=== PATIENT | female | born 1990 | race Caucasian/White ===

== ENCOUNTER → 2019-06-10 10:29 | Outpatient (CLI) | payer OTHER, SELFPAY ==
[2019-06-01 10:35] VITALS: BMI 42.0
[2019-06-10 11:13] LABS: Absolute Lymphocyte Count 2.16 X10^3/uL (0.83-4.51); Absolute Neutrophil Count 6.6 X10^3/uL (2.0-7.7); Basophil# 0.04 X10^3/uL; Basophil% 0.4 % (0-1); Hematocrit 43.3 % (37-47); Hemoglobin 14.5 g/dL (12.0-15.0); Lymphocyte # 2.16 X10^3/ul (4.0); Lymphocyte % 21.7 % (19-41); Mean Corp Hgb Conc 33.5 g/dL (32-36); Mean Corpuscular Hgb 27.8 pg (27.0-32.0); Mean Corpuscular Volume 83.1 fL (81-99); Monocyte# 0.94 X10^3/uL; Monocyte% 9.4 % (0-10); NRBC Flagged by Analyzer 0 % (0-5); Neutrophil # 6.64 X10^3/uL (2.7-7.7); Neutrophil % 66.7 % (47-70); Platelet Count 338 K/mm3 (150-450); RBC Distribution Width CV 12.6 % (11.6-14.6); RBC Distribution Width SD 38.4 fl (35.1-43.9); Red Blood Count 5.21 M/mm3 (4.2-5.4)
[2019-06-10 11:49] LABS: Cholesterol 143 mg/dL (200); Estradiol 31.2 pg/mL; Follicle Stimulating Hormone 6.5 mIU/mL; Glucose 98 mg/dL (74-106); High Density Lipoprotein 42 mg/dL; Prolactin 17.9 ng/mL; T4 Free Direct 1.11 ng/dL (0.76-1.46); Thyroid Stim Hormone (TSH) 1.96 uIU/mL (0.358-3.74); Triglycerides 108 mg/dL; Very Low Density Lipoprotein 22 mg/dL (5-40)
[2019-06-11 20:07] LABS: DHEA Sulfate 228.5 ug/dL (84.8-378.0)
[2019-06-14 13:01] LABS: 17-Hydroxyprogesterone 24 ng/dL (.)
[2019-06-14 13:07] LABS: Testosterone Free 3.2 pg/mL (0.0-4.2)
== END ==
PROVIDERS: Referring Provider Obstetrics & Gynecology; Visit Provider Obstetrics & Gynecology
DX: N93.9 Abnormal uterine and vaginal bleeding, unspecified (principal); Z13.1 Encounter for screening for diabetes mellitus; Z13.220 Encounter for screening for lipoid disorders
CPT/HCPCS: 36415; 80061; 82627; 82670; 82947; 83001; 83498; 84146; 84402; 84439; 84443; 85025; 82626

== ENCOUNTER 2019-07-06 07:30 | Day surgery (SDC) | payer OTHER, SELFPAY ==
[2019-05-27 10:46] VITALS: BMI 42.0
[2019-06-24 16:24] VITALS: BMI 42.0
--- NOTE | 2019-07-06 05:24 | HP.PCM_ITS ---
- Problem List (1) Abnormal uterine bleeding Status: Acute Comment: heavy menses, ordered labs and workup. (2) Dysmenorrhea Status: Acute Comment: recommend diagnostic laparoscopy chromotubation (3) Infertility Status: Acute Comment: 5 years of infertility History and Physical Date of Admission: 07/06/19 Intake Vital Signs 06/24/19 BMI 42.0 06/24/19 Height 5 ft 6 in 06/24/19 Weight: 265 lb 06/24/19 BMI 42.7 06/24/19 BP 142/88 H Intake Visit Reasons: pre op diag. lap. 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 Machine Required: No Is patient in pain?: No Allergies Penicillins Allergy (Mild, Verified 06/24/19 16:07) vomiting, lightheadedness Sulfa (Sulfonamide Antibiotics) Allergy (Mild, Verified 06/24/19 16:07) unknown Medications NK 05/27/19 [History Confirmed 06/24/19] Is last menstrual period known: No Post menopausal: No Patient : No : No PFSH Medical History pelvic floor tightness (Acute) PCOS (polycystic ovarian syndrome) (Resolved) Family History Mother Hypertension Hypothyroidism Grandfather Prostate cancer Aunt Ovarian cancer Grandmother Mya's disease Heart disease Other Myocardial infarction Social History (Updated 06/24/19 @ 16:31 by Cuca Kelsey MD) Smoking Status: Never smoker alcohol intake: current alcohol intake frequency: holidays/special occasions only substance use type: does not use caffeine: Yes what type of physical activity do you participate in: none seatbelt use: always do you feel safe at home: Yes additional social history: - [employer] 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 lap. chromotubation: Details: KATARINA BAKER is a 28 year old who presents for preop exam. she has AUB-HMB and pelvic pain, dysmenorrhea and infertility. Female Reproductive History Cycle Length: 21-35 Bleeding Duration: 7 Questions: Metorrhagia: No, Sexually active: Yes, Dyspareunia: No, PCB: No Menopausal Symptoms: No night sweats Pregancy History 0 Elective abortions Hx Para Spontaneous abortions Hx # Term Pregnancies Ectopic pregnancies Hx # Pregnancies Multiple births # of living children ROS Const Constitutional: Denies fatigue, night sweats, weight gain or weight loss ENT ENT: Reports system reviewed and no additional complaints, except as docu Cardio Card: Denies chest pain Resp Resp: Denies cough or dyspnea GI GI: Reports as per HPI; denies abdominal pain, constipation, nausea or vomiting : Denies nipple discharge, urinary frequency, urinary incontinence, urinary hesitancy, urinary urgency, vaginal discharge, vaginal dryness, vaginal odor or vaginal itching Musc Musc: Denies joint pain, back pain or muscle weakness Skin Skin/Breast: Denies nipple discharge Neuro Neuro: Reports system reviewed and no additional complaints, except as docu Psych Psych: Reports system reviewed and no additional complaints, except as docu Endo Endo: Denies cold intolerance, excessive sweating, heat intolerance or increased thirst Maximo/Lymph Hematologic/Lymphatic: Denies easy bleeding, Denies easy bruising, Denies enlarged lymph nodes Exam Const General: cooperative, healthy appearing, comfortable, no acute distress, well developed Orientation: alert [facility] Head: normal to inspection, normocephalic Ears: hearing grossly normal bilaterally, external ears normal Nose: external nose normal, nares normal Face and sinus: normal facial exam Neck Neck: normal visual inspection, no lymphadenopathy Thyroid: thyroid normal Chest Chest palpation & inspection: normal inspection of the chest Resp Effort & Inspection: normal respiratory effort Auscultation: clear to auscultation bilaterally Cardio Rate: regular rate Rhythm: regular rhythm Heart Sounds: S1 normal, S2 normal GI Inspection: normal to inspection, non-distended Palpation: soft, no hepatosplenomegaly Musc Other: gross motor intact no deficits, full bilateral strength Skin General: no rashes or lesions noted Neuro General: alert, awake, moves all extremities, no focal motor deficits Motor: muscle tone normal throughout Extrem General: normal to inspection, no pedal edema Psych Appearance: grossly normal Mental Status: mental status grossly normal Affect: normal affect Speech and Movement: speech and movement normal Assessment & Plan Problems 1. Dysmenorrhea N94.6 recommend diagnostic laparoscopy chromotubation 2. Abnormal uterine bleeding N93.9 heavy menses, ordered labs and workup. 3. Infertility 5 years of infertility Plan After discussing the patient's diagnosis and treatment plan options, patient wishes to proceed with surgical management. I have discussed with the patient the risks, benefits, and alternatives of the procedure which include but are not limited to risks of anesthesia, bleeding, infection, possible damage to bowel, bladder, or surrounding vasculature which could lead to additional surgery to evaluate any complications. Patient agrees to procedure and wishes to proceed. ACOG/uptodate references given for additional information regarding procedure. Coding Level of Care Code No Charge Diagnoses Dysmenorrhea N94.6 Abnormal uterine bleeding N93.9 Infertility UPDATE- I have seen the patient and performed any clinically relevant updates to the history and physical exam. Cuca Kelsey MD
[2019-07-06 08:02] VITALS: BP 138/90; PULSE 78; RESP 16; TEMP 36.9; O2SAT 99; BMI 42.7
[2019-07-06 08:03] LABS: Hemoglobin 13.2 g/dL (12.0-15.0); Mean Corpuscular Hgb 27.6 pg (27.0-32.0); Mean Corpuscular Volume 83.5 fL (81-99); Mean Platelet Vol. 9.6 fl (6.2-12.0); Platelet Count 317 K/mm3 (150-450); RBC Distribution Width CV 12.9 % (11.6-14.6); RBC Distribution Width SD 39.1 fl (35.1-43.9); Red Blood Count 4.79 M/mm3 (4.2-5.4); White Blood Count 9.7 K/mm3 (4.4-11.0)
[2019-07-06 08:04] LABS: Internal QC Validated? YES +Cl - CLEAR BKGD
[2019-07-06 08:05] LABS: Pregnancy, Urine Negative Negative
[2019-07-06] MEDS: Lactated Ringers 1,000 ML 100 ML IV (08:08)
--- NOTE | 2019-07-06 08:51 | OP.PCM_ITS ---
Problem List (1) Abnormal uterine bleeding Status: Acute Comment: heavy menses, ordered labs and workup. (2) Dysmenorrhea Status: Acute Comment: recommend diagnostic laparoscopy chromotubation (3) Infertility Status: Acute Comment: 5 years of infertility Report of Operation Date of Procedure: 07/06/19 Pre-Operative Diagnosis: infertility pelvic pain Post-Operative Diagnosis: same plus endometriosis b ilateral tubal patency, left perifimbrial adhesions Surgery/Procedure Performed:: diagnostic laparosocpy chromotubation Description of Surgical Findings:: bilateral tubal patency, endometriosis old inactive lesions, left peritubal adhesion sigmoid to pelvic side wall adhesions spinning supervisor: Colleen Dennison Type of Anesthesia:: Spinal Special Medications: tori Specimen's removed: none Drains: none Estimated Blood Loss (mL): 50 Fluids Replaced: crystalloid Description of Procedure: Patient was taken to the operating room and placed under general anesthesia was prepped and draped in normal sterile fashion in the dorsolithotomy position. Uterine manipulator was placed inside the uterus after sounding to 7 cm. Attention was then paid to the abdominal portion the procedure and the umbilicus was injected with Marcaine and a 5 mm infraumbilical incision was made and the varies needle entered into the abdomen confirmed to be intra-abdominal with a 5 mm opening pressure in the abdomen was insufflated with CO2 gas. 5 mm trocar was placed under direct visualization and right left lower quadrant 5 mm ports were placed under direct visualization. See operative findings for details. Normal upper abdomen and normal appendix were seen. Some discoloration to the sigmoid colon and pelvic sidewall in the cul-de-sac are suggestive of previous old endometriosis but no active lesions were seen. There was scar tissue noted around the left fallopian tube and the sigmoid colon and the sigmoid colon to the left pelvic sidewall. These were taken down with LigaSure both bluntly and sharply and with a small amount of cautery. The fimbrial end was avoided and minimal manipulation of the fallopian tube was performed to avoid any possible trauma. Dissection was made and a small amount of bleeding was noted and therefore this was treated with Tori. Excellent hemostasis was noted. Methylene blue that was diluted was introduced into the uterus through the uterine manipulator and bilateral tubal patency was confirmed with no gross abnormalities seen to this. Excellent hemostasis was noted and all ports were removed from the patient as well as the vaginal manipulator. All instruments removed from the patient and patient was awoken and taken recovery in stable condition. Grafts/Implants Used: none - Admit VTE Documentation VTE Present on Admission: Yes VTE Mechan Device Prophylaxis: SCD's Multi Select Codes - Urinary/Genital Urinary/Genital CPT Codes: 91391 Chromotubation - diagnostic laparosocpy- please add appropriate code to list, 55708 Lysis of adhesions, laproscopic
--- NOTE | 2019-07-06 08:58 | DCINST_ITS ---
You will use the following diet at home:: Regular Discharge Activity: Return to Normal Activity, May not drive while taking narcotic pain medications. Return to work on:: 07/12/19 May resume sexual activity in: 10-14 days Weight Bearing Status: Full weight bearing Lifting Restrictions: no more than 30 lbs x 2 weeks Call your doctor if your incision/area has: Sudden Increased Bleeding, Increased Pain/ Swelling, Increased Redness, Foul Smelling Discharge Call your doctor if you observe: Fever of 101 or Higher, Coldness, Increased Pain, Dizziness, Uncontrolled pain Cleanse incision/area with: Soap & Water Additional Dressing/Incision Instructions:: remove dressing after 1 week Allergies/Adverse Reactions: Allergies Penicillins Allergy (Mild, Verified 07/06/19 08:01) vomiting, lightheadedness Sulfa (Sulfonamide Antibiotics) Allergy (Mild, Verified 07/06/19 08:01) unknown Medications to take at Discharge Naproxen [Naprosyn] 250 - 500 mg PO Q8H PRN PRN #30 tab 07/06/19 Oxycodone HCl/Acetaminophen [Percocet 5-325] 1 - 2 tab PO Q6H PRN PRN 7 Days #15 tab 07/06/19 The following prescriptions were given: Naproxen [Naprosyn] 250 - 500 mg PO Q8H PRN PRN #30 tab PRN Reason: MILD PAIN Transmission Status: Pending to [facility] Oxycodone HCl/Acetaminophen [Percocet 5-325] 1 - 2 tab PO Q6H PRN PRN 7 Days #15 tab PRN Reason: Pain Transmission Status: Sent to [facility] Primary Care Physician: Care Physician,No Primary [Primary Care Provider] - Test Results: Test results from this visit will be discussed in further detail at your follow- up appointment, if applicable. Please Follow Up With: Cuca Kelsey MD - 2 weeks
[2019-07-06] MEDS: Bupivacaine 0.25% 30 ML Vial (09:20)
[2019-07-06 09:58] VITALS: BP 138/90; BP 143/102; PULSE 93; RESP 14; TEMP 36.2; O2SAT 95
[2019-07-06 10:15] VITALS: BP 132/97; BP 138/90; PULSE 80; RESP 16; O2SAT 94
[2019-07-06 10:29] VITALS: BP 134/92; BP 138/90; PULSE 93; RESP 16; O2SAT 97
[2019-07-06 10:31] VITALS: BP 134/92; BP 138/90; PULSE 78; RESP 16; TEMP 36.4; O2SAT 94
[2019-07-06 12:32] VITALS: BP 118/73; BP 138/90; PULSE 72; RESP 16; TEMP 36.3; O2SAT 97
== END 2019-07-06 12:34 | disposition home or self-care (01) ==
LOC: SDC 07:31 → AC 07:33
PROVIDERS: Referring Provider Obstetrics & Gynecology; Visit Provider Obstetrics & Gynecology
PROC: (CPT 49320; principal; 2019-07-06 08:45)
DX: N80.3 Endometriosis of pelvic peritoneum (principal); N73.6 Female pelvic peritoneal adhesions (postinfective); N97.9 Female infertility, unspecified; Z87.442 Personal history of urinary calculi
CPT/HCPCS: 00952; 58350; 81025; 85027; 86850; 86900; 86901; J7120; J2405; Q9968

== ENCOUNTER → 2019-07-08 17:02 | Outpatient (CLI) | payer OTHER, SELFPAY ==
[2019-07-08 16:16] VITALS: BMI 42.7
== END ==
LOC: LABSPEC 17:04
PROVIDERS: Referring Provider Obstetrics & Gynecology; Visit Provider Obstetrics & Gynecology
DX: N89.8 Other specified noninflammatory disorders of vagina (principal)
CPT/HCPCS: 87070; 87086; 87205

== ENCOUNTER 2021-07-31 09:31 | Outpatient (CLI) | payer OTHER, SELFPAY ==
[2021-07-31 10:11] LABS: Progesterone Level 6.01 ng/mL (See Comment)
[2021-08-06 13:12] LABS: Anti-Mullerian Hormone,Serum 4.01 ng/mL (.)
[2021-08-06 13:44] LABS: HPV Reflexed? NOT INDICATED
== END 2021-07-31 23:59 | disposition home or self-care (01) ==
PROVIDERS: Referring Provider Obstetrics & Gynecology; Visit Provider Obstetrics & Gynecology
DX: Z12.4 Encounter for screening for malignant neoplasm of cervix (principal); Z31.9 Encounter for procreative management, unspecified; N94.6 Dysmenorrhea, unspecified
CPT/HCPCS: 36415; 83516; 84144; 88175; G0145

== ENCOUNTER → 2021-12-24 | Outpatient (CLI) | payer OTHER, SELFPAY ==
[2021-12-24 13:27] LABS: Amphetamine Urine VISTA NEGATIVE (<1000 ng/mL); Barbiturate Urine VISTA NEGATIVE (< 200 ng/mL); Benzodiazepine Urine VISTA NEGATIVE (< 200 ng/mL); Cocaine Urine VISTA NEGATIVE (< 300 ng/mL); Ecstacy Urine VISTA NEGATIVE (< 500 ng/mL); Methadone Urine VISTA NEGATIVE (< 300 ng/mL); PCP Urine VISTA NEGATIVE (< 25 ng/mL); THC Urine VISTA NEGATIVE (< 50 ng/mL); Vista UDS pH Range 6
[2021-12-26 00:06] LABS: Chlamydia By Nucleic Acid AMP Negative (Negative)
[2021-12-27 17:12] LABS: Gonococcus By Nucleic Acid AMP Negative (Negative)
== END | disposition home or self-care (01) ==
LOC: LABSPEC 11:27
PROVIDERS: Visit Provider Obstetrics & Gynecology
DX: O09.90 Supervision of high risk pregnancy, unspecified, unspecified trimester (principal)
CPT/HCPCS: 80307; 87086; 87088; 87491; 87591

== ENCOUNTER → 2022-01-11 | Outpatient (CLI) | payer OTHER, SELFPAY ==
[2022-01-11 09:17] LABS: Absolute Lymphocyte Count 1.01 X10^3/uL (0.83-4.51); Absolute Neutrophil Count 8.4 X10^3/uL (2.0-7.7); Basophil# 0.03 X10^3/uL; Basophil% 0.3 % (0-1); Eosinophil# 0.04 X10^3/uL; Eosinophils% 0.4 % (0-5); Hematocrit 34.7 % (37-47); Hemoglobin 11.9 g/dL (12.0-15.0); Lymphocyte # 1.01 X10^3/ul (0.83-4.51); Lymphocyte % 9.7 % (19-41); Mean Corp Hgb Conc 34.3 g/dL (32-36); Mean Corpuscular Hgb 28.1 pg (27.0-32.0); Mean Platelet Vol. 10.2 fl (6.2-12.0); Monocyte# 0.83 X10^3/uL; NRBC Flagged by Analyzer 0 % (0-5); Neutrophil % 80.7 % (47-70); Platelet Count 279 K/mm3 (150-450); RBC Distribution Width CV 13.4 % (11.6-14.6); RBC Distribution Width SD 39.7 fl (35.1-43.9); Red Blood Count 4.23 M/mm3 (4.2-5.4); White Blood Count 10.4 K/mm3 (4.4-11.0)
[2022-01-11 09:49] LABS: Glucose Challenge Gest 1H 50g 188 mg/dL (70-140)
[2022-01-11 09:59] LABS: NATERA MAILED SPECIMEN
[2022-01-11 10:34] LABS: HIV - WCH Non-Reactive (Nonreactive); Hepatitis B Surface Antigen Non-Reactive (Nonreactive); Hepatitis C Antibody Non-Reactive (Nonreactive); Rubella IgG Reactive (Nonreactive); Syphilis Antibodies Non-reactive
== END | disposition home or self-care (01) ==
PROVIDERS: Referring Provider Obstetrics & Gynecology; Visit Provider Obstetrics & Gynecology
DX: O09.90 Supervision of high risk pregnancy, unspecified, unspecified trimester (principal)
CPT/HCPCS: 36415; 82950; 85025; 86703; 86762; 86780; 86803; 86850; 86900; 86901; 87340

== ENCOUNTER 2022-01-21 11:03 | Outpatient (RCR) | payer OTHER, SELFPAY | END 2022-02-13 23:59 | LOC: DC 11:03 | PROVIDERS: Visit Provider Obstetrics & Gynecology | DX: O24.419 Gestational diabetes mellitus in pregnancy, unspecified control (principal); Z3A.00 Weeks of gestation of pregnancy not specified | CPT/HCPCS: 97802; 97803 ==

== ENCOUNTER 2022-02-20 10:34 | Emergency (ER) | payer OTHER, SELFPAY ==
[2022-02-20 10:35] VITALS: BP 175/116; PULSE 115; RESP 18; TEMP 36.4; O2SAT 98; BMI 43.4
--- NOTE | 2022-02-20 10:57 | US_ITS ---
STUDY: RENAL ULTRASOUND - COMPLETE REASON FOR EXAM: Female, 31 years old. Flank pain RIGHT SIDE, RLQ TECHNIQUE: Ultrasound evaluation of the kidneys was performed with real-time and static steinberg-scale imaging. COMPARISON: None. FINDINGS: RIGHT KIDNEY: Normal location of the right kidney, which is normal in size. The right kidney measures 11.5 cm x 5.7 cm x 5.2 cm. There is a normal cortex of the right kidney. The renal cortex measures 2.0 cm. There is no right renal mass or cyst. There are no right renal calculi. There is no right hydronephrosis. DISTAL RIGHT URETER: There is non-visualization of the distal right ureter. There is no demonstrated right ureterovesical junction calculus. There is a visualized right ureteral jet. LEFT KIDNEY: Normal location of the left kidney, which is normal in size. The left kidney measures 11.9 cm x 6.2 cm x 6 cm. There is a normal cortex of the left kidney. The renal cortex measures 2.1 cm. There is an 8 mm x 6 mm x 6 mm echogenic nodule in the lower pole of the left kidney. This may represent a small angiomyolipoma. There are no left renal calculi. There is no left hydronephrosis. DISTAL LEFT URETER: There is non-visualization of the distal left ureter. There is no demonstrated left ureterovesical junction calculus. There is a visualized left ureteral jet. BLADDER: The distended urinary bladder has a volume of 115 ml. There is a normal wall thickness of the distended urinary bladder. There is no demonstrated mass within the urinary bladder. There are no demonstrated bladder calculi. US/Kidney and Bladder IMPRESSION: Normal ultrasound of the kidneys and urinary bladder. 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 Electronically Signed: Thong Glaser MD at 13:40 EDT ,
--- NOTE | 2022-02-20 10:57 | US_ITS ---
STUDY: SECOND AND THIRD TRIMESTER OBSTETRICAL ULTRASOUND - LIMITED REASON FOR EXAM: Female, 31 years old abdominal pain FLANK PAIN, RLQ PAIN viability, placenta LMP: 10/20/2021. PRIOR ULTRASOUND: None. TECHNIQUE: Transabdominal TECHNICAL QUALITY: Adequate. FINDINGS: There is a single intrauterine fetus. The fetus is in a breech presentation. There is demonstrated cardiac activity with a heart rate of 158 bpm. There is a normal amniotic fluid volume. The largest amniotic fluid pocket measures 4.55 cm. The amniotic fluid index (ROBERTO) is within normal limits. The placenta is posterior in location and is not low lying. There are Grade 0 placental changes. The cervix measures 3.6 cm in length. BIOMETRY: BPD: 3.91 cm: 17 weeks, 6 days HC: 14.99 cm: 18 weeks, 0 days AC: 12.85 cm: 18 weeks, 3 days FL: 2.53 cm: 17 weeks, 5 days Age by LMP: 17 weeks, 4 days. ELVIS by LMP: 07/27/2022. age by current US: 18 weeks, 0 days. ELVIS by current US: 07/24/2022. Estimated weight: 222 grams, +/- 33 grams, 73 percentile. US/OB Limited With Biometrics IMPRESSION: Single live uterine gestation with a mean gestational age of 18 weeks. Electronically Signed: Thong Glaser MD at 13:49 EDT ,
--- NOTE | 2022-02-20 11:01 | EDS_ITS ---
HPI HPI - Female History of Present Illness Chief Complaint: Abd Pain Narrative Narrative: 31-year-old female 17 weeks presenting with nausea and vomiting. She states that he had some typical nausea with her but has been worse over the last several days. She notes he had some right flank pain which has come and gone and is now more persistent. She states that she has a history of kidney stones in the past and it feels similar. Patient states that she is not having dysuria or hematuria. She does note that when she coughs or sneezes she urinates a little. She also states this happens when she vomits. She is not had a fever, chills, body aches. Patient has had a confirmed intrauterine x2. She states the last one was a couple of weeks ago. Patient states she called the [facility] [employer] office and was told to come to the emergency room. She has not had any vaginal bleeding or discharge. Patient does note that she has had some elevated blood pressures as an outpatient. This has been being monitored by her DIRECTOR [employer] Dr. Kelsey. She is not on any antihypertensives. She is also had some gestational diabetes issues. [facility] Medical History PCOS (polycystic ovarian syndrome) pelvic floor tightness Home Medications docosahexaenoic acid 200 mg capsule ( DHA) mg PO 07/31/21 [History Last Taken Unknown] miscellaneous medical supply (Blood Pressure Cuff) #1 ea 12/24/21 [Rx Last Taken Unknown] pediatric multivitamin no.7-folic acid 100 mcg chewable tablet (Flintstones Multi-Vitamins Gummies) tab PO 01/21/22 [History Last Taken Unknown] Allergy/AdvReac Type Severity Reaction Status Date / Time Sulfa (Sulfonamide Allergy Severe unknown Verified 02/20/22 10:38 Antibiotics) Penicillins Allergy Mild vomiting, Verified 02/20/22 10:38 lightheadedness Family History Mother Hypertension Hypothyroidism Grandfather Prostate cancer Aunt Ovarian cancer Grandmother Mya's disease Heart disease Other Anxiety Arthritis Autoimmune disorder Blood clot in vein CVA (cerebral vascular accident) Cancer Depression Diabetes High cholesterol Hormone deficiency Kidney disease Myocardial infarction Osteoporosis Seizures Skin cancer Thyroid disorder Surgical History laparoscopic chromotubation Social History adopted: No household members: spouse housing: house number of children: 0 current occupational status: employed 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 current occupational exposures/hazards: No pets and animals: Yes pets and animals: cat(s), dog(s) and farm animals history of recent travel: No sexually active: Yes Smoking Status: Never smoker second hand exposure: No alcohol intake: current alcohol intake frequency: holidays/special occasions only details: Not while substance use type: does not use well-balanced diet: daily or most days caffeine: Yes what type of physical activity do you participate in: none lynn/faith: Bahai seatbelt use: always do you feel safe at home: Yes additional social history: - [employer] 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 EXAM Physical Exam Const Vital Signs: 02/20/22 10:35 02/20/22 13:13 Temperature 97.5 F L 97.7 F L Temperature Source Temporal Temporal Pulse Rate 115 H 78 Respiratory Rate 18 18 Blood Pressure 175/116 H 135/75 H Blood Pressure Mean 135 95 Pulse Ox 98 98 Oxygen Delivery Method Room Air Room Air Positive well nourished General Appearance ED: NAD; Negative for pallor HEENT Reports moist mucous membranes Eyes PERRL and EOMs intact bilaterally General Eye ED: Negative for pale conjunctiva or scleral icterus Resp normal respiratory effort and clear to auscultation bilaterally Cardio regular rhythm Rate: tachycardic GI Palpation: tender RLQ Back/Spine General Back: CVA tenderness right Neuro oriented x3 and CN's II-XII intact bilaterally Sensorium / Orientation: alert Motor Exam: strength 5/5 throughout Psych mental status grossly normal Skin no rashes or lesions noted and no wounds General Skin Exam: Negative for jaundice or pallor MDM MDM MDM Narrative Medical decision making narrative: Patient presenting with right flank pain nausea and vomiting. She has a history of kidney stones. She states that the last time she was checked for these it apparently had passed. She was given Zofran and IV fluids at this did help her symptoms. Initial blood pressure 175/116 however this has improved to 135/75. CBC shows a leukocytosis of 15.6. Hemoglobin hematocrit are stable. Renal function, LFTs, electrolytes are all within normal limits. hCG is 16,893. Urinalysis shows 500 leukocyte esterase with 0-5 RBCs, 25-50 white blood cells, 0-5 squamous epithelials and 2+ bacteria. Renal ultrasound 8 mm x 6 mm x 6 mm angiomyolipoma on the left kidney. There is no hydronephrosis of either kidney. No stone is identified. Obstetric ultrasound was also obtained and shows a single live uterine gestation with a mean gestational age of 18 weeks. I discussed the case with Dr. Florentino who is on-call. She recommended treating for pyelonephritis because of the urinalysis. We did discuss the patient's allergies to penicillin however we will give her a dose of Rocephin here and if she tolerates this we will get her home on Keflex 3 times daily. Urine culture was sent. Patient will also receive Zofran for home. Impression: 1. Nausea/vomiting 2. Leukocytosis 3. Right flank pain 4. Pyelonephritis Lab Data Attestation: I reviewed the patient's lab results. Labs: Laboratory Results - last 24 hr 02/20/22 02/20/22 02/20/22 11:01 11:01 11:01 WBC 15.6 H RBC 4.35 Hgb 12.0 Hct 36.2 L MCV 83.2 MCH 27.6 MCHC 33.1 RDW Std Deviation 41.2 RDW Coeff of Lino 13.6 Plt Count 282 MPV 10.3 Immature Gran % (Auto) 1.200 H Neut % (Auto) 82.7 H Lymph % (Auto) 8.8 L [place] % (Auto) 6.0 Eos % (Auto) 1.0 Baso % (Auto) 0.3 Absolute Neuts (auto) 12.9 H Absolute Lymphs (auto) 1.37 Nucleated RBC % 0 Sodium Potassium Chloride Carbon Dioxide Anion Gap BUN Creatinine Estim Creat Clear Calc Est GFR (MDRD) Af Amer Est GFR (MDRD) Non-Af BUN/Creatinine Ratio Glucose Calcium Total Bilirubin AST ALT Alkaline Phosphatase Total Protein Albumin Globulin Albumin/Globulin Ratio HCG, Quant 16664 H Urine Color Yellow Urine Clarity Sl. Cloudy Urine pH 6.0 Ur Specific [place] 1.020 Urine Protein 30 H Urine Glucose (UA) Normal Urine Ketones Negative Urine Occult Blood 10 H Urine Nitrite Negative Urine Bilirubin Negative Urine Urobilinogen Normal Ur Leukocyte Esterase 500 H Urine RBC 0-5 SEEN Urine WBC 25-50 SEEN Ur Squamous Epith Cells 0-5 SEEN Urine Bacteria 2+ Urine Mucus 0 SEEN 02/20/22 11:09 WBC RBC Hgb Hct MCV MCH MCHC RDW Std Deviation RDW Coeff of Lino Plt Count MPV Immature Gran % (Auto) Neut % (Auto) Lymph % (Auto) [place] % (Auto) Eos % (Auto) Baso % (Auto) Absolute Neuts (auto) Absolute Lymphs (auto) Nucleated RBC % Sodium 138 Potassium 3.9 Chloride 107 Carbon Dioxide 21.0 Anion Gap 10 BUN 10 Creatinine 0.59 Estim Creat Clear Calc 131.71 Est GFR (MDRD) Af Amer 154 Est GFR (MDRD) Non-Af 127 BUN/Creatinine Ratio 16.9 Glucose 85 Calcium 9.3 Total Bilirubin 0.20 AST 8 L ALT 14 Alkaline Phosphatase 73 Total Protein 7.1 Albumin 2.9 L Globulin 4.2 Albumin/Globulin Ratio 0.7 L HCG, Quant Urine Color Urine Clarity Urine pH Ur Specific [place] Urine Protein Urine Glucose (UA) Urine Ketones Urine Occult Blood Urine Nitrite Urine Bilirubin Urine Urobilinogen Ur Leukocyte Esterase Urine RBC Urine WBC Ur Squamous Epith Cells Urine Bacteria Urine Mucus Radiography Diagnostic Testing: Clinical Impression(s) from Imaging Studies Obstetrics Ultrasound 02/20/22 10:57 IMPRESSION: Single live uterine gestation with a mean gestational age of 18 weeks. Electronically Signed: Thong Glaser MD at 13:49 EDT , Renal Ultrasound 02/20/22 10:57 IMPRESSION: Normal ultrasound of the kidneys and urinary bladder. 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 Electronically Signed: Thong Glaser MD at 13:40 EDT , Discharge Plan Triage Chief Complaint: Abd Pain ED Provider: Santana Kauffman Dx/Rx/DC Orders Prescriptions: No Action DHA 200 mg capsule PO (DME) Blood Pressure Cuff Misc See Rx Instructions .Route Qty: 1 0RF Rx Instructions: As directed Alistair Multi-Vit Gummies 100 mcg tablet,chewable PO Primary Care Provider: Care Physician,No Primary Referrals: Care Physician,No Primary [Primary Care Provider] -
[2022-02-20] MEDS: Ondansetron 4 MG/2 ML Vial IV (11:15)
[2022-02-20] MEDS: 0.9% Normal Saline 1,000 ML 1000 ML IV (11:15)
[2022-02-20 11:19] LABS: Mucous, Urine 0 SEEN /hpf (<or=2+)
[2022-02-20 11:24] LABS: Color, Urine Yellow (Yellow); Glucose, Dipstick Normal (Normal); Ketone-Dipstick Negative (Negative); Leukocyte Esterase-Dipstick 500 /ul (Negative); Nitrite-Dipstick Negative (Negative); Occult Blood-Urine 10 /ul (Negative); Protein-Dipstick 30 mg/dl (Negative); Urine Bilirubin Dipstick Negative (Negative); Urine Clarity Sl. Cloudy (Clear); Urine Urobilinogen Normal (Normal)
[2022-02-20 11:25] LABS: Absolute Lymphocyte Count 1.37 X10^3/uL (0.83-4.51); Absolute Neutrophil Count 12.9 X10^3/uL (2.0-7.7); Basophil# 0.05 X10^3/uL; Basophil% 0.3 % (0-1); Eosinophil# 0.16 X10^3/uL; Hematocrit 36.2 % (37-47); Lymphocyte # 1.37 X10^3/ul (0.83-4.51); Lymphocyte % 8.8 % (19-41); Mean Corp Hgb Conc 33.1 g/dL (32-36); Mean Corpuscular Hgb 27.6 pg (27.0-32.0); Mean Corpuscular Volume 83.2 fL (81-99); Mean Platelet Vol. 10.3 fl (6.2-12.0); Monocyte# 0.94 X10^3/uL; NRBC Flagged by Analyzer 0 % (0-5); Neutrophil # 12.88 X10^3/uL (2.7-7.7); Neutrophil % 82.7 % (47-70); Platelet Count 282 K/mm3 (150-450); RBC Distribution Width CV 13.6 % (11.6-14.6); RBC Distribution Width SD 41.2 fl (35.1-43.9); Red Blood Count 4.35 M/mm3 (4.2-5.4); White Blood Count 15.6 K/mm3 (4.4-11.0)
[2022-02-20 11:30] LABS: Bacteria 2+ /hpf (None Seen); Red Blood Cells-Urine 0-5 SEEN /hpf (0-5); Squamous Epithelial Cells - UA 0-5 SEEN /hpf (5-10); White Blood Cells 25-50 SEEN /hpf (0-5)
[2022-02-20 11:40] LABS: ALB/GLOB Ratio 0.7 RATIO (0.9-2.4); AST(SGOT) 8 U/L (15-37); Alanine Aminotransfer ALT/SGPT 14 U/L (13-56); Albumin, Serum 2.9 g/dL (3.2-5.0); Alkaline Phosphatase 73 U/L (45-117); Anion Gap 10 (5-15); BUN 10 mg/dL (7-18); BUN/Creat Ratio 16.9 RATIO (10-20); Calcium,Total 9.3 mg/dL (8.5-10.1); Chloride 107 mmol/L (98-107); Creatinine, Serum 0.59 mg/dL (0.55-1.02); EST Glomerular Filtration Rate 127 mL/min (>60); Est Glom Filt Rate - Afr Amer 154 mL/min (>60); Estimated Creatinine Clearance 131.71 ml/min; Globulin 4.2 g/dL (2.2-4.2); Glucose 85 mg/dL (74-106); Potassium 3.9 mmol/L (3.5-5.1); Protein, Total 7.1 g/dL (6.4-8.2); Sodium Level 138 mmol/L (136-145)
[2022-02-20 12:21] LABS: hCG Titer Quant., Serum 16893 mIU/mL (1-3)
[2022-02-20 13:13] VITALS: BP 135/75; PULSE 78; RESP 18; TEMP 36.5; O2SAT 98
[2022-02-20] MEDS: Ceftriaxone 1 GM/50 ML BAG IV (14:55)
[2022-02-20 16:03] VITALS: BP 132/72; PULSE 87; RESP 16; TEMP 36.1; O2SAT 97
== END 2022-02-20 16:09 | disposition home or self-care (01) ==
PROVIDERS: Emergency Provider Student in an Organized Health Care Education/Training Program; Visit Provider Student in an Organized Health Care Education/Training Program
DX: O26.892 Other specified pregnancy related conditions, second trimester (principal); O99.112 Other diseases of the blood and blood-forming organs and certain disorders involving the immune mechanism complicating pregnancy, second trimester; R10.9 Unspecified abdominal pain; Z3A.18 18 weeks gestation of pregnancy; O26.832 Pregnancy related renal disease, second trimester; D72.829 Elevated white blood cell count, unspecified; O24.419 Gestational diabetes mellitus in pregnancy, unspecified control; O23.02 Infections of kidney in pregnancy, second trimester; O21.9 Vomiting of pregnancy, unspecified; O99.891 Other specified diseases and conditions complicating pregnancy; D17.71 Benign lipomatous neoplasm of kidney
CPT/HCPCS: 76770; 76815; 76816; 80053; 81001; 84702; 85025; 87086; 87088; 96361; 96365; 96375; 99283; J7030; J7050; A4216; J2405

== ENCOUNTER → 2022-02-25 | Outpatient (CLI) | payer OTHER, SELFPAY ==
[2022-02-25 15:08] LABS: Hemoglobin A1c 5.4 % (3.8-5.6)
== END | disposition home or self-care (01) ==
PROVIDERS: Referring Provider Obstetrics & Gynecology; Visit Provider Obstetrics & Gynecology
DX: Z34.92 Encounter for supervision of normal pregnancy, unspecified, second trimester (principal); N89.8 Other specified noninflammatory disorders of vagina; Z3A.18 18 weeks gestation of pregnancy
CPT/HCPCS: 36415; 83036; 87070; 87205

== ENCOUNTER 2022-04-20 12:15 | Outpatient (CLI) | payer OTHER, SELFPAY ==
[2022-04-20 12:26] VITALS: PULSE 90; O2SAT 98
[2022-04-20 12:27] VITALS: BP 145/78; PULSE 82; BMI 44.9
[2022-04-20 12:31] VITALS: PULSE 86; O2SAT 99
--- NOTE | 2022-04-20 12:45 | OB.TRI.HP_ITS ---
HPI - General HPI Narrative KATARINA BAKER, is a 31 F who presents at at 26.0 ELVIS 07/27/2022. 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 This resulted in an episode of vomiting pain cramping. Cramping has been consistent since Friday and worsened over last night. She denies vaginal ble eding. She notes on triage phone call that she had no movement from the previous evening and the recommendation was to be evaluated in labor and delivery. Maternal Data Information ELVIS Calculator Estimated Delivery Date Method Current WG Current Estimate 07/27/22 LMP (Certain) 26w 0d Final ELVIS [facility] Medical History PCOS (polycystic ovarian syndrome) pelvic floor tightness Home Medications docosahexaenoic acid 200 mg capsule ( DHA) mg PO 07/31/21 [History Last Taken Unknown] miscellaneous medical supply (Blood Pressure Cuff) #1 ea 12/24/21 [Rx Last Taken Unknown] pediatric multivitamin no.7-folic acid 100 mcg chewable tablet (Flintstones Multi-Vitamins Gummies) 1 tab PO DAILY 01/21/22 [History Last Taken 04/19/22 1] cephalexin 500 mg capsule 500 mg PO TID #30 caps 02/20/22 [Rx Last Taken Unknown] ondansetron 4 mg disintegrating tablet 4 mg PO Q8H PRN nausea and vomiting #14 tabs 02/20/22 [Rx Last Taken Unknown] metoclopramide HCl 10 mg tablet (Reglan) 10 mg PO Q6H PRN nausea and vomiting #60 tabs 02/21/22 [Rx Last Taken 04/20/22 10] Allergy/AdvReac Type Severity Reaction Status Date / Time Sulfa (Sulfonamide Allergy Severe unknown Verified 03/25/22 14:07 Antibiotics) Penicillins Allergy Mild vomiting, Verified 03/25/22 14:07 lightheadedness Family History Mother Hypertension Hypothyroidism Grandfather Prostate cancer Aunt Ovarian cancer Grandmother Mya's disease Heart disease Other Anxiety Arthritis Autoimmune disorder Blood clot in vein CVA (cerebral vascular accident) Cancer Depression Diabetes High cholesterol Hormone deficiency Kidney disease Myocardial infarction Osteoporosis Seizures Skin cancer Thyroid disorder Surgical History laparoscopic chromotubation Social History adopted: No household members: spouse housing: house number of children: 0 current occupational status: employed 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 current occupational exposures/hazards: No pets and animals: Yes pets and animals: cat(s), dog(s) and farm animals history of recent travel: No sexually active: Yes Smoking Status: Never smoker second hand exposure: No alcohol intake: current alcohol intake frequency: holidays/special occasions only details: Not while substance use type: does not use well-balanced diet: daily or most days caffeine: Yes what type of physical activity do you participate in: none lynn/advent: Caodaism seatbelt use: always do you feel safe at home: Yes additional social history: - [employer] 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 is shift manager History 1 Elective abortions Hx Para 0 Spontaneous abortions Hx # Term Pregnancies Ectopic pregnancies Hx # Pregnancies Multiple births # of living children Visit Details Expected Delivery Route/Plan Labor Preferences- CB/BF classes: [] labor support person: [] labor intervention preferences: [] pain management options preferred: [] cut cord/dad catch: [] : [] PP control planned: [] discussed possible routes of delivery and associated risks: [] special requests: [] Plans Covid status: discussed Flu vaccine: discussed Tdap vaccine: [] Rhogam: [] LARC form signed: [] Problem list reviewed and updated with the most current plan of care details and appropriate orders placed. Relevant counseling for the gestational age provided. Continue routine care and follow up unless otherwise noted in visit notes/problem list details OB Flowsheet Initial Weight: Not Recorded Date -?-?-?-?-?-?-?-?-?-?-?-?- EGA Weight BP Urine Prot -?-?-?-?-?-?-?-?-?-?-?--?- Glucose FHR FuHt Pres Dilation -?-?-?-?-?-?-?-?-?-?-?-?- Effaced St Visit Note 12/24/21 -?-?-?-?-?-?-?-?-?-?-?-?- 9w 2d 272 lb 152/94 -?-?-?-?-?-?-?-?-?-?-?-?- 170 -?-?-?-?-?-?-?-?-?-?-?-?- SM- CRL cons wit h LMP SM- CRL cons 2.3cm with LMP 01/01/22 -?-?-?-?-?-?-?-?-?-?-?-?- 10w 3d 272 lb 2 oz 136/88 Nega tive -?-?-?-?-?-?-?-?-?-?-?-?- Negative 163 -?-?-?-?-?-?-?-?-?-?-?-?- JV- pt is being seen urgently to day for pink vaginal disharge. on exam there is a moderate amount of yeast but no blood. cx is closed. ultrasound showed good movement and FHT of 163. pt reassurred and recommend monistat. 01/21/22 -?-?-?-?-?-?-?-?-?-?-?-?- 13w 2d 270 lb 6 oz 145/83 Trac e -?-?-?-?-?-?-?-?-?-?-?-?- Negative 150 -?-?-?-?-?-?-?-?-?-?-?-?- SM- BS fairly we ll controlled, meeting with endocrine today 02/25/22 -?-?-?-?-?-?-?-?-?-?-?-?- 18w 2d 271 lb 126/76 -?-?-?-?-?-?-?-?-?-?-?-?- 145 -?-?-?-?-?-?-?-?-?-?-?-?- SM- co vaginal b urning. used external monistat still having itching. SM- co vaginal burning. use d external monistat still having itching. controlled BS 03/25/22 -?-?-?-?-?-?-?-?-?-?-?-?- 22w 2d 275 lb 2 oz 129/83 Nega tive -?-?-?-?-?-?-?-?-?-?-?-?- Negative 140 -?-?-?-?-?-?-?-?-?-?-?-?- SM- no vb lof go od fm no regular ctx. fu US scheduled. afp neg. BS fairly controlled ROS ROS Narrative Patient continues with cramping. Notes increased urinary output/urgency. Patient denies leaking of fluid, vaginal bleeding. Still notes infrequent movement. Genitourinary Genitourinary: Reports contractions, urinary frequency and urinary urgency Physical Exam Const alert and oriented x3 Resp normal respiratory effort and normal air movement GI soft to palpation and non-tender GI Narrative: fundus palpated around 26 weeks. no CVA tenderness Extremity normal to inspection and full ROM NST FHR Rate Baby A Baseline: 150 Variability:: Moderate Accelerations:: 10 x 10 NST Reactive:: Appropriate for gestational age Uterine Activity:: tracing is intermittent due to obesity and movement. FHR is present. no uterine activity Assessment & Plan (1) : QUALIFIERS: Weeks of gestation: 22 weeks Qualified Code(s): Z3A.22 - 22 weeks gestation of COMMENT: anatomy nl addtnl views in 2 wks nl, Carrier testing, NIPT low risk. afp negative (2) Supervision of high risk , antepartum: COMMENT: PRR ELVIS 07/27/22, boy evgeny Spouse Jose J (3) Obesity affecting : COMMENT: 1 TM GCT ordered, healthy weight gain encouraged (4) Gestational diabetes: COMMENT: HgA1c, glucometer readings fasting and 2 hrs pp, s/p referral to Endocrinolgist & [facility] manager consumer insights, wkcarlito NST @ 34 wks growth q4 wks PLAN: Plan Patient presents for triage evaluation secondary to [decrease FM af ] FHT: [positive] Moderate variability reactive no decelerations category I tracing [place]: [no] Contractions Assessment and plan: 31yo at 26weeks. UA/UCx -UA indicative of UTI. Macrobid Rx sent to pharmacy Reactive NST, reassuring maternal and status patient discharged to home to follow-up in office, espiecally is UTI symptoms do not improve by friday. See problem list details for additional plan information. Charges/Coding Multi Select Codes Urinary/Genital Urinary/Genital CPT Codes: 12955-09 non-stress test Interp
[2022-04-20 12:53] LABS: Red Blood Cells-Urine 0 SEEN /hpf (0-5)
[2022-04-20 12:55] LABS: Color, Urine Yellow (Yellow); Glucose, Dipstick Normal (Normal); Ketone-Dipstick Negative (Negative); Leukocyte Esterase-Dipstick 500 /ul (Negative); Nitrite-Dipstick Negative (Negative); Occult Blood-Urine Negative /ul (Negative); Protein-Dipstick Negative (Negative); Specific Gravity, Urine 1.015 (1.002-1.030); Urine Bilirubin Dipstick Negative (Negative); Urine Clarity Sl. Cloudy (Clear); Urine Urobilinogen Normal (Normal)
[2022-04-20 13:04] LABS: Bacteria 2+ /hpf (None Seen); Mucous, Urine RARE /hpf (<or=2+); Squamous Epithelial Cells - UA 0-5 SEEN /hpf (5-10); White Blood Cells 10-25 SEEN /hpf (0-5)
[2022-04-20 14:00] VITALS: TEMP 36.6
[2022-04-20 14:01] VITALS: BP 136/72; PULSE 88
--- NOTE | 2022-04-23 15:22 | CASEMGMT ---
Social Work Labor and Delivery Unit Consulted by OBGYN office regarding possible financial resources for this patient. Called confirmed number from OB office and what is also listed in hospital demographic record, . Message left to call this short story writer back at patient's convenience for resources and questions. No identifying patient information left on voicemail. -ETHAN Cole, YIELD ANALYST
== END 2022-04-20 14:25 | disposition home or self-care (01) ==
LOC: WPOUT 12:19 → WP 12:20
PROVIDERS: Visit Provider Registered Nurse
DX: O23.42 Unspecified infection of urinary tract in pregnancy, second trimester (principal); O24.419 Gestational diabetes mellitus in pregnancy, unspecified control; Z79.2 Long term (current) use of antibiotics; O09.10 Supervision of pregnancy with history of ectopic pregnancy, unspecified trimester; Z3A.26 26 weeks gestation of pregnancy; O99.212 Obesity complicating pregnancy, second trimester
CPT/HCPCS: 59050; 81001; 87086; 87088; 99218; G0378

== ENCOUNTER → 2022-04-22 | Outpatient (CLI) | payer OTHER, SELFPAY ==
[2022-04-22 13:56] LABS: Absolute Lymphocyte Count 1.86 X10^3/uL (0.83-4.51); Absolute Neutrophil Count 14.9 X10^3/uL (2.0-7.7); Basophil# 0.06 X10^3/uL; Basophil% 0.3 % (0-1); Eosinophil# 0.12 X10^3/uL; Eosinophils% 0.6 % (0-5); Lymphocyte # 1.86 X10^3/ul (0.83-4.51); Lymphocyte % 9.8 % (19-41); Mean Corp Hgb Conc 33.3 g/dL (32-36); Mean Corpuscular Hgb 27.6 pg (27.0-32.0); Mean Corpuscular Volume 82.7 fL (81-99); Mean Platelet Vol. 10.1 fl (6.2-12.0); Monocyte# 1.48 X10^3/uL; Monocyte% 7.8 % (0-10); NRBC Flagged by Analyzer 0 % (0-5); Neutrophil % 78.9 % (47-70); Platelet Count 324 K/mm3 (150-450); RBC Distribution Width CV 13.2 % (11.6-14.6); RBC Distribution Width SD 39.8 fl (35.1-43.9); Red Blood Count 3.99 M/mm3 (4.2-5.4); White Blood Count 18.9 K/mm3 (4.4-11.0)
== END | disposition home or self-care (01) ==
LOC: PAVLAB 13:34
PROVIDERS: Referring Provider Obstetrics & Gynecology; Visit Provider Obstetrics & Gynecology
DX: O09.90 Supervision of high risk pregnancy, unspecified, unspecified trimester (principal)
CPT/HCPCS: 36415; 85025

== ENCOUNTER 2022-05-07 10:20 | Outpatient (CLI) | payer OTHER, SELFPAY ==
[2022-05-07 10:28] VITALS: BMI 45.3
[2022-05-07 10:52] VITALS: BP 123/68; PULSE 90
[2022-05-07 11:02] VITALS: BP 122/62; PULSE 84; TEMP 36.7; O2SAT 99
[2022-05-07 11:11] LABS: Hematocrit 29.6 % (37-47); Hemoglobin 10.3 g/dL (12.0-15.0); Mean Corp Hgb Conc 34.8 g/dL (32-36); Mean Corpuscular Hgb 28.5 pg (27.0-32.0); Mean Corpuscular Volume 81.8 fL (81-99); Mean Platelet Vol. 9.8 fl (6.2-12.0); Platelet Count 272 K/mm3 (150-450); RBC Distribution Width CV 13.4 % (11.6-14.6); RBC Distribution Width SD 39.8 fl (35.1-43.9); Red Blood Count 3.62 M/mm3 (4.2-5.4); White Blood Count 15.4 K/mm3 (4.4-11.0)
[2022-05-07 11:12] VITALS: BP 128/67; PULSE 90
[2022-05-07 11:22] VITALS: BP 127/68; PULSE 83
[2022-05-07 11:24] LABS: AST(SGOT) 7 U/L (15-37); Alanine Aminotransfer ALT/SGPT 11 U/L (13-56); Creatinine, Serum 0.53 mg/dL (0.55-1.02); EST Glomerular Filtration Rate 145 mL/min (>60); Est Glom Filt Rate - Afr Amer 176 mL/min (>60); Estimated Creatinine Clearance 146.62 ml/min; Uric Acid 3.5 mg/dL (2.6-6.0)
[2022-05-07 11:32] VITALS: BP 129/70; PULSE 89
[2022-05-07 11:42] VITALS: BP 124/70; PULSE 93
--- NOTE | 2022-05-07 13:20 | OB.TRI.HP_ITS ---
HPI - General HPI Narrative KATARINA BAKER, is a 31 F who presents for PIH work up. In the office her blood pressures were 140's-150'/80's-90's. She denies headache or visual changes and admits to having extreme anxiety at home. She lays awake at night worried about her babies being hurt. She was oferred vistaril at her ob appt today. Also during the office visit she was noted to have a UTI. Culture was sent and rx for macrobid was sent to her pharmacy. because of this, the Prot: cr ratio and 24 hr urine was held. Maternal Data Information ELVIS Calculator Estimated Delivery Date Method Current WG Current Estimate 07/27/22 LMP (Certain) 28w 3d PFSH PFS Medical History PCOS (polycystic ovarian syndrome) pelvic floor tightness Home Medications docosahexaenoic acid 200 mg capsule ( DHA) 1 mg PO DAILY 07/31/21 [History Last Taken 05/07/22 08:00] miscellaneous medical supply (Blood Pressure Cuff) #1 ea 12/24/21 [Rx Last Taken Unknown] pediatric multivitamin no.7-folic acid 100 mcg chewable tablet (Flintstones Multi-Vitamins Gummies) 1 tab PO DAILY 01/21/22 [History Last Taken 05/07/22 08:00] ondansetron 4 mg disintegrating tablet 4 mg PO Q8H PRN nausea and vomiting #14 tabs 02/20/22 [Rx Last Taken Unknown] metoclopramide HCl 10 mg tablet (Reglan) 10 mg PO Q6H PRN nausea and vomiting #60 tabs 02/21/22 [Rx Last Taken 05/07/22 08:00] insulin lispro 100 unit/mL subcutaneous pen (Humalog KwikPen (U-100) Insulin) 5 unit (0.05 mL) subcut .before supper #15 mL 05/06/22 [Rx Last Taken 05/06/22 18:00] pen needle,diabetic dual safty 30 gauge x 3/16 (BD AutoShield Duo Pen Needle) #100 ea 05/06/22 [Rx Last Taken Unknown] hydroxyzine pamoate 25 mg capsule (Vistaril) 25 mg PO BID PRN anxiety #30 caps 05/07/22 [Rx Last Taken Unknown] Allergy/AdvReac Type Severity Reaction Status Date / Time Sulfa (Sulfonamide Allergy Severe Hives Verified 05/07/22 10:44 Antibiotics) Penicillins Allergy Mild Vomiting Verified 05/07/22 10:44 Family History Mother Hypertension Hypothyroidism Grandfather Prostate cancer Aunt Ovarian cancer Grandmother Mya's disease Heart disease Other Anxiety Arthritis Autoimmune disorder Blood clot in vein CVA (cerebral vascular accident) Cancer Depression Diabetes High cholesterol Hormone deficiency Kidney disease Myocardial infarction Osteoporosis Seizures Skin cancer Thyroid disorder Surgical History laparoscopic chromotubation Social History adopted: No household members: spouse housing: house number of children: 0 current occupational status: employed 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 current occupational exposures/hazards: No pets and animals: Yes pets and animals: cat(s), dog(s) and farm animals history of recent travel: No sexually active: Yes Smoking Status: Never smoker second hand exposure: No alcohol intake: current alcohol intake frequency: holidays/special occasions only details: Not while substance use type: does not use well-balanced diet: daily or most days caffeine: Yes what type of physical activity do you participate in: none lynn/jain: Moravian seatbelt use: always do you feel safe at home: Yes additional social history: - [employer] 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 History 1 Elective abortions Hx Para 0 Spontaneous abortions Hx # Term Pregnancies Ectopic pregnancies Hx # Pregnancies Multiple births # of living children Visit Details Expected Delivery Route/Plan Labor Preferences- CB/BF classes: yes labor support person: Jose J labor intervention preferences: [] pain management options preferred: epidural cut cord/dad catch: yes : yes PP control planned: discussed discussed possible routes of delivery and associated risks: [] special requests: [] Plans Covid status: discussed Flu vaccine: declines Tdap vaccine: declines Rhogam:na LARC form signed: yes Problem list reviewed and updated with the most current plan of care details and appropriate orders placed. Relevant counseling for the gestational age provided. Continue routine care and follow up unless otherwise noted in visit notes/problem list details OB Flowsheet Initial Weight: Not Recorded Date -?-?-?-?-?-?-?-?-?-?-?-?- EGA Weight BP Urine Prot -?-?-?-?-?-?-?-?-?-?-?-?- Glucose FHR FuHt Pres Dilation -?-?-?-?-?-?-?-?-?-?-?-?- Effaced St Visit Note 12/24/21 -?-?-?-?-?-?-?-?-?-?-?-?- 9w 2d 272 lb 152/94 -?-?-?-?-?-?-?-?-?-?-?-?- 170 -?-?-?-?-?-?-?-?-?-?-?-?- SM- CRL cons wit h LMP SM- CRL cons 2.3cm with LMP 01/01/22 -?-?-?-?-?-?-?-?-?-?-?-?- 10w 3d 272 lb 2 oz 136/88 Nega tive -?-?-?-?-?-?-?-?-?-?-?-?- Negative 163 -?-?-?-?-?-?-?-?-?-?-?-?- JV- pt is being seen urgently to day for pink vaginal disharge. on exam there is a moderate amount of yeast but no blood. cx is closed. ultrasound showed good movement and FHT of 163. pt reassurred and recommend monistat. 01/21/22 -?-?-?-?-?-?-?-?-?-?-?-?- 13w 2d 270 lb 6 oz 145/83 Trac e -?-?--?-?-?-?-?-?-?-?-?-?- Negative 150 -?-?-?-?-?-?-?-?-?-?-?-?- SM- BS fairly we ll controlled, meeting with endocrine today 02/25/22 -?-?-?-?-?-?-?-?-?-?-?-?- 18w 2d 271 lb 126/76 -?-?-?-?-?-?-?-?-?-?-?-?- 145 -?-?-?-?-?-?-?-?-?-?-?-?- SM- co vaginal b urning. used external monistat still having itching. SM- co vaginal burning. use d external monistat still having itching. controlled BS 03/25/22 -?-?-?-?-?-?-?-?-?-?-?-?- 22w 2d 275 lb 2 oz 129/83 Nega tive -?-?-?-?-?-?-?-?-?-?-?-?- Negative 140 -?-?-?-?-?-?-?-?-?-?-?-?- SM- no vb lof go od fm no regular ctx. fu US scheduled. afp neg. BS fairly controlled 04/22/22 -?-?-?-?-?-?-?-?-?-?-?-?- 26w 2d 275 lb 134/82 -?-?-?-?-?-?-?-?-?-?-?-?- 140 26 -?-?-?-?-?-?-?-?-?-?-?-?- LC-no vb,lof,ctx . good fm. glucose mostly controlled, followed by endo. on abx for presumed UTI over the weekend. 05/07/22 -?-?-?-?-?-?-?-?-?-?-?-?- 28w 3d 279 lb 8 oz 164/86 Nega tive -?-?-?-?-?-?-?-?-?-?-?-?- Negative 148 29 0 -?-?-?-?-?-?-?-?-?-?-?-?- -concern with UTI and yeast. UA positive and macrobid sent. Comp vag culture pending/exam neg. Larc. To WP further eval due to HTN ROS Constitutional Constitutional: Reports systems reviewed and no addt'l complaints, except as documented Gastrointestinal Gastrointestinal: Denies bloating, constipation, cramping, diarrhea, nausea or vomiting Genitourinary Genitourinary: Reports other Details: Denies vaginal odor, vaginal bleeding, or vaginal discharge ; Denies difficulty urinating or flank pain NST FHR Rate Baby A Baseline: 140 Variability:: Moderate Decelerations:: None NST Reactive:: Yes FHR Category:: Category I Assessment & Plan (1) Anxiety: COMMENT: vistaril. consider zoloft after done with reglan (2) Hypertension affecting : PLAN: bp's are normal and labs are normal sending patient home. (3) Frequent UTI: COMMENT: start prophylactic therapy pending culture PLAN: Plan plan to take abx now then start suppressive therapy as this is her 3rd uti in Charges/Coding Multi Select Codes Visit Charges Office Visit/Consults: 32708 OV L3 Est Urinary/Genital Urinary/Genital CPT Codes: 68681-73 non-stress test Interp
== END 2022-05-07 11:55 | disposition home or self-care (01) ==
LOC: WPOUT 10:22 → WP 10:23
PROVIDERS: Obstetrics & Gynecology; Visit Provider Obstetrics & Gynecology
DX: O23.43 Unspecified infection of urinary tract in pregnancy, third trimester (principal); O13.3 Gestational [pregnancy-induced] hypertension without significant proteinuria, third trimester; Z3A.28 28 weeks gestation of pregnancy; Z79.899 Other long term (current) drug therapy
CPT/HCPCS: 36415; 59025; 59050; 82565; 84450; 84460; 84550; 85027; 87070; 87086; 87088; 87205; 99218; G0378

== ENCOUNTER → 2022-06-04 | Outpatient (CLI) | payer OTHER, SELFPAY | END | disposition home or self-care (01) | LOC: LABSPEC 14:04 | PROVIDERS: Visit Provider Obstetrics & Gynecology | DX: R35.0 Frequency of micturition (principal) | CPT/HCPCS: 87086; 87088 ==

== ENCOUNTER → 2022-06-11 | Outpatient (CLI) | payer OTHER, SELFPAY ==
--- NOTE | 2022-06-11 18:17 | US_ITS ---
STUDY: OBSTETRICAL ULTRASOUND - BIOPHYSICAL PROFILE REASON FOR EXAM: Female, 31 years old well-being. LMP: October 20, 2021. PRIOR ULTRASOUND: June 11, 2022 and February 20, 2022. TECHNIQUE: Transabdominal TECHNICAL QUALITY: Adequate. FINDINGS: There is a single intrauterine fetus. The fetus is in a cephalic presentation. There is demonstrated cardiac activity with a heart rate of 166 bpm. There is a normal amniotic fluid volume. The largest amniotic fluid pocket measures 5.8 cm. The amniotic fluid index (ROBERTO) is 10.3 cm. The placenta is posterior in location and is not low lying. There are Grade 2 placental changes. Age by LMP: 33 weeks, 3 days. ELVIS by LMP: July 27, 2022. age by prior US: 33 weeks, 6 days. ELVIS by prior US: July 24, 2022. age by current US: 36 weeks, 0 days. ELVIS by current US: July 09, 2019. Gender: Indeterminant BIOPHYSICAL PROFILE: Breathing Movements (FBM): 2 Gross Body Movements (GBM): 2 Tone (FT): 2 Amniotic Fluid Volume (AFV): 2 TOTAL SCORE: 8 / 8 US/Biophysical Prof W/O Non Stres IMPRESSION: Normal biophysical profile of 01/21. Electronically Signed: Chaim Bell DO at 19:53 EST ,
--- NOTE | 2022-06-11 18:18 | US_ITS ---
STUDY: SECOND AND THIRD TRIMESTER OBSTETRICAL ULTRASOUND - LIMITED REASON FOR EXAM: Female, 31 years old. Growth. Maternal diabetes. LMP: October 20, 2021. PRIOR ULTRASOUND: February 20, 2022. TECHNIQUE: Transabdominal TECHNICAL QUALITY: Adequate. FINDINGS: There is a single intrauterine fetus. The fetus is in a cephalic presentation. There is demonstrated cardiac activity with a heart rate of bpm. 173 The largest amniotic fluid pocket measures 6.0 cm. The amniotic fluid index (ROBERTO) is 11.63 cm. The placenta is posterior in location and is not low lying. There are Grade 2 placental changes. The cervix measures 3.4 cm cm in length. BIOMETRY: BPD: 8.6 cm: 34 weeks, 5 days HC: 32.74 cm: 37 weeks, 1 days AC: 31.59 cm: 35 weeks, 4 days FL: 6.56 cm: 33 weeks, 6 days Age by LMP: 33 weeks, 3 days. ELVIS by LMP: July 27, 2022. age by prior US: 33 weeks, 6 days. ELVIS by prior US: July 24, 2022. age by current US: 36 weeks, 0 days. ELVIS by current US: July 09, 2022. Estimated weight: 2573 grams, +/- 386 grams, 86 percentile. Gender: Indeterminant US/OB Limited With Biometrics IMPRESSION: 1. Live single intrauterine at 36 weeks 0 days. ELVIS is July 09, 2022. This is actually 2 weeks above expected gestational age by prior ultrasound. 2. EFW 2573 g. This is at the 86th percentile. 3. ROBERTO 11.63 cm. 4. Posterior grade 2 placenta. 5. Vertex presentation. Electronically Signed: Chaim Bell DO at 19:49 EST Reading Location ID and State: [address] [place] [address] Tel [phone], Service support ,
== END | disposition home or self-care (01) ==
LOC: US 18:13
PROVIDERS: Visit Provider Obstetrics & Gynecology
DX: Z34.93 Encounter for supervision of normal pregnancy, unspecified, third trimester (principal); Z3A.36 36 weeks gestation of pregnancy
CPT/HCPCS: 76816; 76819

== ENCOUNTER 2022-06-13 12:35 | Outpatient (CLI) | payer OTHER, SELFPAY ==
[2022-06-13] VITALS (11 sets, daily range): BP systolic 128–141; BP diastolic 81–91; PULSE 85–98; TEMP 36.4; O2SAT 98–99; BMI 45.3
[2022-06-13 13:34] LABS: Hematocrit 32.5 % (37-47); Hemoglobin 10.5 g/dL (12.0-15.0); Mean Corp Hgb Conc 32.3 g/dL (32-36); Mean Corpuscular Hgb 26.6 pg (27.0-32.0); Mean Corpuscular Volume 82.5 fL (81-99); Mean Platelet Vol. 10.2 fl (6.2-12.0); Platelet Count 334 K/mm3 (150-450); RBC Distribution Width CV 13.4 % (11.6-14.6); RBC Distribution Width SD 40.4 fl (35.1-43.9); Red Blood Count 3.94 M/mm3 (4.2-5.4); White Blood Count 19.3 K/mm3 (4.4-11.0)
[2022-06-13 13:47] LABS: AST(SGOT) 8 U/L (15-37); Alanine Aminotransfer ALT/SGPT 14 U/L (13-56); Creatinine, Serum 0.78 mg/dL (0.55-1.02); EST Glomerular Filtration Rate 92 mL/min (>60); Est Glom Filt Rate - Afr Amer 111 mL/min (>60); Estimated Creatinine Clearance 99.63 ml/min; Uric Acid 4.1 mg/dL (2.6-6.0)
[2022-06-13 14:14] LABS: Protein, Urine (Random) 21.3 mg/dL (<11.9); Protein:Creat Ratio 382 mg/g CRE (0-200)
--- NOTE | 2022-06-13 16:50 | OB.TRI.PN_ITS ---
Progress Notes Progress Note: Patient presents for triage evaluation secondary to elevated bp at home nl here FHT: 140 Moderate variability reactive no decelerations category I tracing [place]: no regular Contractions Assessment and plan: uti possible early pyelonephritis, given IV ceftriaxone x 1. plan keflex qid x 10 days and then bid for remainder of . Reactive NST, reassuring maternal and status patient discharged to home to follow- up as scheduled. See problem list details for additional plan information. Laboratory Studies: Laboratory Tests 06/13/22 06/13/22 06/13/22 Range/Units 13:50 13:10 13:10 WBC 19.3 H (4.4-11.0) K/mm3 RBC 3.94 L (4.2-5.4) M/mm3 Hgb 10.5 L (12.0-15.0) g/dL Hct 32.5 L (37-47) % MCV 82.5 (81-99) fL MCH 26.6 L (27.0-32.0) pg MCHC 32.3 (32-36) g/dL RDW Std Deviation 40.4 (35.1-43.9) fl RDW Coeff of Lino 13.4 (11.6-14.6) % Plt Count 334 (150-450) K/mm3 MPV 10.2 (6.2-12.0) fl Creatinine 0.78 (0.55-1.02) mg/dL Estim Creat Clear Calc 99.63 ml/min Est GFR (MDRD) Af Amer 111 (>60) mL/min Est GFR (MDRD) Non-Af 92 (>60) mL/min Uric Acid 4.1 (2.6-6.0) mg/dL AST 8 L (15-37) U/L ALT 14 (13-56) U/L U Random Total Protein 21.3 H (<11.9) mg/dL Urine Creatinine 55.70 (NO RANGE EST.) mg/dL Protein/Creatinin Ratio 382 H (0-200) mg/g CRE Charges/Coding Procedures Urinary/Genital 52xxx-59xxx: 90192-67 non-stress test Interp Assessment & Plan (1) Leukocytosis: COMMENT: afebrile, uti diagnosed- given iv ceftriaxone and keflex QID x 10 days then plan keflex bid for rest of for recurrent UTIs
== END 2022-06-13 17:00 | disposition home or self-care (01) ==
LOC: WPOUT 12:40 → WP 12:40
PROVIDERS: Referring Provider Obstetrics & Gynecology; Visit Provider Obstetrics & Gynecology
DX: O23.40 Unspecified infection of urinary tract in pregnancy, unspecified trimester (principal); Z3A.00 Weeks of gestation of pregnancy not specified
CPT/HCPCS: 96365; 36415; 59025; 59050; 82565; 82570; 84156; 84450; 84460; 84550; 85027; 87086; 87088; 99218; G0378; J0696

== ENCOUNTER 2022-06-24 15:00 | Outpatient (CLI) | payer OTHER, SELFPAY ==
[2022-06-24 15:18] VITALS: TEMP 37.3
[2022-06-24 15:28] VITALS: BMI 45.1
[2022-06-24 15:36] VITALS: BP 140/90; PULSE 90
[2022-06-24 15:50] LABS: Hematocrit 31.7 % (37-47); Hemoglobin 10.4 g/dL (12.0-15.0); Mean Corp Hgb Conc 32.8 g/dL (32-36); Mean Corpuscular Hgb 26.9 pg (27.0-32.0); Mean Corpuscular Volume 82.1 fL (81-99); Mean Platelet Vol. 10.3 fl (6.2-12.0); Platelet Count 331 K/mm3 (150-450); RBC Distribution Width SD 40.9 fl (35.1-43.9); Red Blood Count 3.86 M/mm3 (4.2-5.4); White Blood Count 15.1 K/mm3 (4.4-11.0)
[2022-06-24 15:51] VITALS: BP 144/87; PULSE 96
[2022-06-24 16:06] VITALS: BP 145/83; PULSE 90
[2022-06-24 16:08] LABS: AST(SGOT) 5 U/L (15-37); Alanine Aminotransfer ALT/SGPT 14 U/L (13-56); Creatinine, Serum 0.74 mg/dL (0.55-1.02); EST Glomerular Filtration Rate 98 mL/min (>60); Est Glom Filt Rate - Afr Amer 119 mL/min (>60); Estimated Creatinine Clearance 105.01 ml/min; Uric Acid 4.5 mg/dL (2.6-6.0)
[2022-06-24 16:36] VITALS: BP 130/90; PULSE 94
[2022-06-24 16:51] VITALS: BP 136/89; PULSE 92
[2022-06-24 16:51] LABS: Protein, Urine (Random) 18.8 mg/dL (<11.9); Protein:Creat Ratio 349 mg/g CRE (0-200)
--- NOTE | 2022-06-24 17:04 | OB.TRI.PN_ITS ---
Progress Notes Progress Note: Patient presents for triage evaluation secondary to elevated bp FHT: 140 Moderate variability reactive no decelerations category I tracing [place]: no regular Contractions Assessment and plan: superimposed preeclampsia Reactive NST, reassuring maternal and status patient discharged to home to follow-up as scheduled. See problem list details for additional plan information. Laboratory Studies: Laboratory Tests 06/24/22 06/24/22 06/24/22 Range/Units 16:20 15:30 15:30 WBC 15.1 H (4.4-11.0) K/mm3 RBC 3.86 L (4.2-5.4) M/mm3 Hgb 10.4 L (12.0-15.0) g/dL Hct 31.7 L (37-47) % MCV 82.1 (81-99) fL MCH 26.9 L (27.0-32.0) pg MCHC 32.8 (32-36) g/dL RDW Std Deviation 40.9 (35.1-43.9) fl RDW Coeff of Lino 14.0 (11.6-14.6) % Plt Count 331 (150-450) K/mm3 MPV 10.3 (6.2-12.0) fl Creatinine 0.74 (0.55-1.02) mg/dL Estim Creat Clear Calc 105.01 ml/min Est GFR (MDRD) Af Amer 119 (>60) mL/min Est GFR (MDRD) Non-Af 98 (>60) mL/min Uric Acid 4.5 (2.6-6.0) mg/dL AST 5 L (15-37) U/L ALT 14 (13-56) U/L U Random Total Protein 18.8 H (<11.9) mg/dL Urine Creatinine 53.80 (NO RANGE EST.) mg/dL Protein/Creatinin Ratio 349 H (0-200) mg/g CRE Charges/Coding Procedures Urinary/Genital 52xxx-59xxx: 08061-07 non-stress test Interp Assessment & Plan (1) Chronic hypertension with superimposed preeclampsia: COMMENT: plan 37 week delivery, recommend off work now until delivery
== END 2022-06-24 17:07 | disposition home or self-care (01) ==
LOC: WP 15:13 → WPOUT 15:13
PROVIDERS: Visit Provider Obstetrics & Gynecology
DX: O11.9 Pre-existing hypertension with pre-eclampsia, unspecified trimester (principal); Z3A.00 Weeks of gestation of pregnancy not specified
CPT/HCPCS: 36415; 59025; 59050; 82565; 82570; 84156; 84450; 84460; 84550; 85027; 99221; G0378

== ENCOUNTER → 2022-07-05 | Outpatient (CLI) | payer OTHER, SELFPAY ==
--- NOTE | 2022-07-05 13:42 | US_ITS ---
STUDY: SECOND AND THIRD TRIMESTER OBSTETRICAL ULTRASOUND - LIMITED REASON FOR EXAM: Female, 31 years old . growth. LMP: 10/20/2021. PRIOR ULTRASOUND: Comparison is made with prior study dated 06/11/2022. TECHNIQUE: Transabdominal TECHNICAL QUALITY: Adequate. FINDINGS: There is a single intrauterine fetus. The fetus is in a cephalic presentation. There is demonstrated cardiac activity with a heart rate of 152 bpm. There is a normal amniotic fluid volume. The largest amniotic fluid pocket measures 8.7 cm. The amniotic fluid index (ROBERTO) is 17.6 cm. The placenta is fundal in location. There are Grade 3 placental changes. The cervix was not measured due to the head positioning. BIOMETRY: BPD: 9.67 cm: 39 weeks, 4 days HC: 34.76 cm: 40 weeks, 2 days AC: 36.66 cm: 40 weeks, 4 days FL: 7.14 cm: 36 weeks, 4 days Age by LMP: 36 weeks, 6 days. ELVIS by LMP: 07/27/2022. age by prior US: 39 weeks, 3 days. ELVIS by prior US: 07/09/2022. age by current US: 39 weeks, 2 days. ELVIS by current US: 07/10/2022. Estimated weight: 3845 grams, +/- 577 grams, 98 percentile. US/OB Limited With Biometrics IMPRESSION: Single live uterine gestation with mean gestational age of 39 weeks and 3 days. The measurements obtained today fall within the normal expected range. Electronically Signed: Thong Glaser MD at 15:09 EST ,
== END | disposition home or self-care (01) ==
PROVIDERS: Referring Provider Nurse Practitioner Women's Health; Visit Provider Nurse Practitioner Women's Health
DX: O11.9 Pre-existing hypertension with pre-eclampsia, unspecified trimester (principal); Z3A.39 39 weeks gestation of pregnancy
CPT/HCPCS: 76816; 87081

== ENCOUNTER 2022-07-08 06:58 | Inpatient (IN) | payer OTHER, SELFPAY ==
[2022-07-08] VITALS (152 sets, daily range): BP systolic 89–201; BP diastolic 51–103; PULSE 74–109; RESP 16; TEMP 36–37.2; O2SAT 81–100; BMI 46.2
[2022-07-08] MEDS: Lactated Ringers 1,000 ML 50 ML IV (07:45)
[2022-07-08 08:07] LABS: Absolute Lymphocyte Count 1.79 X10^3/uL (0.83-4.51); Absolute Neutrophil Count 14.3 X10^3/uL (2.0-7.7); Basophil# 0.05 X10^3/uL; Basophil% 0.3 % (0-1); Eosinophil# 0.06 X10^3/uL; Eosinophils% 0.3 % (0-5); Hematocrit 32.6 % (37-47); Hemoglobin 10.6 g/dL (12.0-15.0); Lymphocyte # 1.79 X10^3/ul (0.83-4.51); Lymphocyte % 9.9 % (19-41); Mean Corp Hgb Conc 32.5 g/dL (32-36); Mean Corpuscular Hgb 26.4 pg (27.0-32.0); Mean Corpuscular Volume 81.1 fL (81-99); Mean Platelet Vol. 10.6 fl (6.2-12.0); Monocyte# 1.27 X10^3/uL; Monocyte% 7.1 % (0-10); NRBC Flagged by Analyzer 0 % (0-5); Neutrophil % 79.4 % (47-70); Platelet Count 318 K/mm3 (150-450); RBC Distribution Width CV 14.3 % (11.6-14.6); RBC Distribution Width SD 41.4 fl (35.1-43.9); Red Blood Count 4.02 M/mm3 (4.2-5.4)
[2022-07-08] MEDS: Labetalol (Prefilled) 20 MG/4 ML IV ×3 (08:09→14:35)
[2022-07-08] MEDS: miSOPROStol 25 MCG TABLET PO ×2 (09:07→13:07)
[2022-07-08 09:08] LABS: Protein, Urine (Random) 21.4 mg/dL (<11.9); Protein:Creat Ratio 456 mg/g CRE (0-200)
[2022-07-08 09:09] LABS: AST(SGOT) 6 U/L (15-37); Alanine Aminotransfer ALT/SGPT 12 U/L (13-56); Creatinine, Serum 0.76 mg/dL (0.55-1.02); EST Glomerular Filtration Rate 96 mL/min (>60); Est Glom Filt Rate - Afr Amer 116 mL/min (>60); Estimated Creatinine Clearance 102.25 ml/min; Uric Acid 4.6 mg/dL (2.6-6.0)
[2022-07-08 09:10] LABS: Bedside Glucose 139 mg/dL (74-106)
[2022-07-08] MEDS: 0.9% Normal Saline Single 100 ML IV.SOLN. INTRA-UTER (09:54)
[2022-07-08] MEDS: NIFEdipine 30 MG Tablet PO (10:16)
[2022-07-08 10:35] LABS: Bedside Glucose 109 mg/dL (74-106)
[2022-07-08] MEDS: 0.9% Saline Lock 10 ML Syringe IV (10:47)
[2022-07-08] MEDS: Magnesium Sulfate 4gm/100mL 4 GM/100 ML IV.SOLN. IV (10:48)
[2022-07-08] MEDS: Magnesium Sulfate 4gm/100mL 2 GM/50 ML IV.SOLN. IV (11:08)
[2022-07-08] MEDS: Magnesium Sulfate 20 GM/500 ML BAG IV (11:21)
[2022-07-08 12:00] LABS: Bedside Glucose 125 mg/dL (74-106)
[2022-07-08 13:00] LABS: Bedside Glucose 114 mg/dL (74-106)
--- NOTE | 2022-07-08 13:19 | HP.PCM.OB_ITS ---
HPI - General General Date of Admission: 07/08/22 HPI Narrative KATARINA BAKER, is a 31 F who presents for IOL secondary to htn and gdm. initially severely elevated bps so managesium sulfate and iv labetalol started. Maternal Data Information ELVIS Calculator Estimated Delivery Date Method Current WG Current Estimate 07/27/22 LMP (Certain) 37w 3d PFSH PFSH Medical History (Updated 07/09/22 @ 00:[address] Cuca Kelsey MD) Anxiety Depression Gestational diabetes Gestational HTN Headache Infertility Kidney stone PCOS (polycystic ovarian syndrome) pelvic floor tightness Home Medications docosahexaenoic acid 200 mg capsule ( DHA) 1 mg PO DAILY Check with primary doctor 07/31/21 [History Last Taken 06/23/22 10:00] pediatric multivitamin no.7-folic acid 100 mcg chewable tablet (Flintstones Multi-Vitamins Gummies) 1 tab PO DAILY Check with primary doctor 01/21/22 [History Last Taken 06/23/22 10:00] metoclopramide HCl 10 mg tablet (Reglan) 10 mg PO Q6H PRN nausea and vomiting #60 tabs 06/13/22 [Rx Last Taken Unknown] hydroxyzine pamoate 25 mg capsule (Vistaril) 25 mg PO BID PRN anxiety #30 caps 07/03/22 [Rx Last Taken Unknown] cephalexin 500 mg capsule 500 mg PO BID Check with primary doctor 07/08/22 [History Last Taken Unknown] insulin lispro 100 unit/mL subcutaneous pen (Humalog KwikPen (U-100) Insulin) 5 unit subcut .before supper Check with primary doctor 07/08/22 [History Last Taken Unknown] miscellaneous medical supply (Blood Pressure Cuff) 07/08/22 [History Last Taken Unknown] pen needle,diabetic dual safty 30 gauge x 3/16 (BD AutoShield Duo Pen Needle) 07/08/22 [History Last Taken Unknown] Allergy/AdvReac Type Severity Reaction Status Date / Time Sulfa (Sulfonamide Allergy Severe Hives Verified 07/08/22 09:18 Antibiotics) Penicillins Allergy Mild Vomiting Verified 07/08/22 09:18 latex Allergy Rash Verified 07/08/22 17:16 Family History Mother Hypertension Hypothyroidism Grandfather Prostate cancer Aunt Ovarian cancer Grandmother Mya's disease Heart disease Other Anxiety Arthritis Autoimmune disorder Blood clot in vein CVA (cerebral vascular accident) Cancer Depression Diabetes High cholesterol Hormone deficiency Kidney disease Myocardial infarction Osteoporosis Seizures Skin cancer Thyroid disorder Surgical History (Updated 07/08/22 @ 09:27 by Precoius Rankin) History of surgery laparoscopic chromotubation Social History adopted: No household members: spouse housing: house number of children: 0 current occupational status: employed 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 current occupational exposures/hazards: No pets and animals: Yes pets and animals: cat(s), dog(s) and farm animals history of recent travel: No sexually active: Yes Smoking Status: Never smoker second hand exposure: No alcohol intake: current alcohol intake frequency: holidays/special occasions only details: Not while substance use type: does not use well-balanced diet: daily or most days caffeine: Yes what type of physical activity do you participate in: none lynn/restorationism: Congregation seatbelt use: always do you feel safe at home: Yes additional social history: - [employer] 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 History 1 Elective abortions Hx Para 0 Spontaneous abortions Hx # Term Pregnancies Ectopic pregnancies Hx # Pregnancies Multiple births # of living children Visit Details Expected Delivery Route/Plan Labor Preferences- CB/BF classes: yes labor support person: Jose J labor intervention preferences: [] pain management options preferred: epidural cut cord/dad catch: yes : yes PP control planned: discussed discussed possible routes of delivery and associated risks: [] special requests: [] Plans Covid status: discussed Flu vaccine: declines Tdap vaccine: declines Rhogam:na LARC form signed: yes Problem list reviewed and updated with the most current plan of care details and appropriate orders placed. Relevant counseling for the gestational age provided. Continue routine care and follow up unless otherwise noted in visit notes/problem list details OB Flowsheet Initial Weight: Not Recorded Date -?-?-?-?-?-?-?-?-?-?-?-?- EGA Weight BP Urine Prot -?-?-?-?-?-?-?-?-?-?-?-?- Glucose FHR FuHt Pres Dilation -?-?-?-?-?-?-?-?-?-?-?-?- Effaced St Visit Note 12/24/21 -?-?-?-?-?-?-?-?-?-?-?-?- 9w 2d 272 lb 152/94 -?-?-?-?-?-?-?-?-?-?-?-?- 170 -?-?-?-?-?-?-?-?-?-?-?-?- SM- CRL cons wit h LMP SM- CRL cons 2.3cm with LMP 01/01/22 -?-?-?-?-?-?-?-?-?-?-?-?- 10w 3d 272 lb 2 oz 136/88 Nega tive -?-?-?-?-?-?-?-?-?-?-?-?- Negative 163 -?-?-?-?-?-?-?-?-?-?-?-?- JV- pt is being seen urgently to day for pink vaginal disharge. on exam there is a moderate amount of yeast but no blood. cx is closed. ultrasound showed good movement and FHT of 163. pt reassurred and recommend monistat. 01/21/22 -?-?-?-?-?-?-?-?-?-?-?-?- 13w 2d 270 lb 6 oz 145/83 Trac e -?-?-?-?-?-?-?-?-?-?-?-?- Negative 150 -?-?-?-?-?-?-?-?-?-?-?-?- SM- BS fairly we ll controlled, meeting with endocrine today 02/25/22 -?-?-?-?-?-?-?-?-?-?-?-?- 18w 2d 271 lb 126/76 -?-?-?--?-?-?-?-?-?-?-?-?- 145 -?-?-?-?-?-?-?-?-?-?-?-?- SM- co vaginal b urning. used external monistat still having itching. SM- co vaginal burning. use d external monistat still having itching. controlled BS 03/25/22 -?-?-?-?-?-?-?-?-?-?-?-?- 22w 2d 275 lb 2 oz 129/83 Nega tive -?-?-?-?-?-?-?-?-?-?-?-?- Negative 140 -?-?-?-?-?-?-?-?-?-?-?-?- SM- no vb lof go od fm no regular ctx. fu US scheduled. afp neg. BS fairly controlled 04/22/22 -?-?-?-?-?-?-?-?-?-?-?-?- 26w 2d 275 lb 134/82 -?-?-?-?-?-?-?-?-?-?-?-?- 140 26 -?-?-?-?-?-?-?-?-?-?-?-?- LC-no vb,lof,ctx . good fm. glucose mostly controlled, followed by endo. on abx for presumed UTI over the weekend. 05/07/22 -?-?-?-?-?-?-?-?-?-?-?-?- 28w 3d 279 lb 8 oz 164/86 Nega tive -?-?-?-?-?-?-?-?-?-?-?-?- Negative 148 29 0 -?-?-?-?-?-?-?-?-?-?-?-?- -concern with UTI and yeast. UA positive and macrobid sent. Comp vag culture pending/exam neg. Larc. To WP further eval due to HTN 05/21/22 -?-?-?-?-?-?-?-?-?-?-?-?- 30w 3d 281 lb 4 oz 164/88 139/87 Negative -?-?-?-?-?-?-?-?-?-?-?-?- Negative 139 31 -?-?-?-?-?-?-?-?-?-?-?-?- MH-No Vb, LOF. G ood FM. Initial BP elevated but 2nd reading WNL. Denies headache, vision changes. Has growth US scheduled and future NSTs. 06/04/22 -?-?-?-?-?-?-?-?-?-?-?-?- 32w 3d 279 lb 8 oz 138/81 Nega tive -?-?-?-?-?-?-?-?-?-?-?-?- Negative 140 -?-?-?-?-?-?-?-?-?-?-?-?- JV- UTI on dip t darcy. reactive NST pt on insulin now. plan for twice weekly nsts starting 36 weeks. weekly until then 06/18/22 -?-?-?-?-?-?-?-?-?-?-?-?- 34w 3d 278 lb 8 oz 138/86 Nega tive -?-?-?-?-?-?-?-?-?-?-?-?- Negative 140 35 -?-?-?-?-?-?-?-?-?-?-?-?- MH-No Vb, LOF an d good FM. Reactive NST. States high glucose this am, did not take insulin last night. Stressed importance in glucose managementy, needs to report to Dr Gonzalez today. Growth US 3 weeks 06/24/22 -?-?-?-?-?-?-?-?-?-?-?-?- 35w 2d 281 lb 8 oz 157/94 Nega tive -?-?-?-?-?-?-?-?-?-?-?-?- Negative 136 -?-?-?-?-?-?-?-?-?-?-?-?- MH-NST only but elevated BP, has headache. Tearful. To for monitoring and Pre E labs. 07/05/22 -?-?-?-?-?-?-?-?-?-?-?-?- 36w 6d 138/78 -?-?-?-?-?-?-?-?-?-?-?-?- 130 0 -?-?-?-?-?-?-?-?-?-?-?-?- 20 -3 LC-here fo r nst. glucose overall controlled with taking insulin. Has IOL scheduled. consent obtained. LC-here for nst. glucose ove rall controlled with taking insulin.IOL scheduled now for friday at 7pm. consent obtained. 07/08/22 -?-?-?-?-?-?-?-?-?-?-?-?- 37w 2d 286 lb 6 oz 201/103 187/96 182/95 143/78 145/80 146/80 146/82 154/84 148/78 146/80 151/87 159/88 162/79 156/80 176/86 183/87 183/87 145/71 145/71 141/67 145/71 145/71 144/83 144/83 144/84 151/82 153/83 153/86 153/84 148/81 146/81 146/81 155/86 144/82 144/82 150/83 162/77 167/88 162/77 182/91 169/90 148/85 152/88 152/88 156/87 165/84 152/79 132/73 132/73 133/72 132/69 142/75 153/83 136/64 118/61 89/51 97/54 91/55 96/54 96/54 107/56 122/64 116/56 147/74 140/71 138/70 157/74 160/72 169/77 134/67 142/72 148/73 145/72 140/65 -?-?-?-?-?-?-?-?-?-?-?-?- -?-?-?-?-?-?-?-?-?-?-?-?- NST FHR Rate Baby A Baseline: 140 Variability:: Moderate Accelerations:: 15 x 15 Decelerations:: None NST Reactive:: Yes FHR Category:: Category I Uterine Activity:: q3-5 ROS Constitutional Constitutional: Reports systems reviewed and no addt'l complaints, except as documented Eyes Eyes: Denies change in vision ENT HEENT: Reports systems reviewed and no addt'l complaints, except as documented Cardiovascular Cardiovascular: Reports systems reviewed and no addt'l complaints, except as documented Respiratory/Chest Respiratory/Chest: Reports systems reviewed and no addt'l complaints, except as documented Gastrointestinal Gastrointestinal: Reports systems reviewed and no addt'l complaints, except as documented and nausea; Denies abdominal pain Genitourinary Genitourinary: Reports systems reviewed and no addt'l complaints, except as documented, contractions Details: present and frequency (regular ) and movement Details: present Musculoskeletal Musculoskeletal: Reports systems reviewed and no addt'l complaints, except as documented Integumentary Integumentary: Reports as per HPI Neurologic Neurologic: Reports systems reviewed and no addt'l complaints, except as documented Endocrine Endocrinology: Reports systems reviewed and no addt'l complaints, except as documented Vital Signs Vital Signs Vital Signs: 07/08/22 07:30 07/08/22 07:30 07/08/22 07:50 Temperature Temperature Source Pulse Rate 98 Respiratory Rate Respiratory Effort Respiratory Depth Respiratory Pattern Blood Pressure 201/103 H 187/96 H Blood Pressure Mean BP Systolic 201 187 BP Diastolic 103 96 Blood Pressure Source Blood Pressure Position Blood Pressure Location Pulse Ox Oxygen Delivery Method 07/08/22 07:50 07/08/22 07:53 07/08/22 07:53 Temperature 98.9 F Temperature Source Temporal Pulse Rate 98 Respiratory Rate Respiratory Effort Respiratory Depth Respiratory Pattern Blood Pressure Blood Pressure Mean BP Systolic BP Diastolic Blood Pressure Source Blood Pressure Position Blood Pressure Location Pulse Ox Oxygen Delivery Method 07/08/22 08:08 07/08/22 08:08 07/08/22 08:09 Temperature Temperature Source Pulse Rate 100 98 Respiratory Rate Respiratory Effort Respiratory Depth Respiratory Pattern Blood Pressure 182/95 H Blood Pressure Mean BP Systolic 182 BP Diastolic 95 Blood Pressure Source Blood Pressure Position Blood Pressure Location Pulse Ox Oxygen Delivery Method 07/08/22 08:09 07/08/22 08:14 07/08/22 08:14 Temperature Temperature Source Pulse Rate 100 Respiratory Rate Respiratory Effort Respiratory Depth Respiratory Pattern Blood Pressure Blood Pressure Mean BP Systolic BP Diastolic Blood Pressure Source Blood Pressure Position Blood Pressure Location Pulse Ox 99 97 Oxygen Delivery Method 07/08/22 08:19 07/08/22 08:19 07/08/22 08:24 Temperature Temperature Source Pulse Rate 96 92 Respiratory Rate Respiratory Effort Respiratory Depth Respiratory Pattern Blood Pressure Blood Pressure Mean BP Systolic BP Diastolic Blood Pressure Source Blood Pressure Position Blood Pressure Location Pulse Ox 97 Oxygen Delivery Method 07/08/22 08:24 07/08/22 08:25 07/08/22 08:25 Temperature Temperature Source Pulse Rate 90 Respiratory Rate Respiratory Effort Respiratory Depth Respiratory Pattern Blood Pressure 143/78 H Blood Pressure Mean BP Systolic 143 BP Diastolic 78 Blood Pressure Source Blood Pressure Position Blood Pressure Location Pulse Ox 95 Oxygen Delivery Method 07/08/22 08:25 07/08/22 08:29 07/08/22 08:29 Temperature Temperature Source Pulse Rate 96 Respiratory Rate Respiratory Effort Respiratory Depth Respiratory Pattern Blood Pressure Blood Pressure Mean BP Systolic BP Diastolic Blood Pressure Source Blood Pressure Position Blood Pressure Location Pulse Ox 93 99 Oxygen Delivery Method 07/08/22 08:34 07/08/22 08:34 07/08/22 08:35 Temperature Temperature Source Pulse Rate 94 Respiratory Rate Respiratory Effort Respiratory Depth Respiratory Pattern Blood Pressure 145/80 H Blood Pressure Mean BP Systolic 145 BP Diastolic 80 Blood Pressure Source Blood Pressure Position Blood Pressure Location Pulse Ox 99 Oxygen Delivery Method 07/08/22 08:36 07/08/22 08:36 07/08/22 08:45 Temperature Temperature Source Pulse Rate 95 Respiratory Rate Respiratory Effort Respiratory Depth Respiratory Pattern Blood Pressure 146/80 H Blood Pressure Mean BP Systolic 146 BP Diastolic 80 Blood Pressure Source Blood Pressure Position Blood Pressure Location Pulse Ox 94 Oxygen Delivery Method 07/08/22 08:45 07/08/22 08:56 07/08/22 08:56 Temperature Temperature Source Pulse Rate 95 90 Respiratory Rate Respiratory Effort Respiratory Depth Respiratory Pattern Blood Pressure 146/82 H Blood Pressure Mean BP Systolic 146 BP Diastolic 82 Blood Pressure Source Blood Pressure Position Blood Pressure Location Pulse Ox Oxygen Delivery Method 07/08/22 09:05 07/08/22 09:05 07/08/22 09:15 Temperature Temperature Source Pulse Rate 93 Respiratory Rate Respiratory Effort Respiratory Depth Respiratory Pattern Blood Pressure 154/84 H 148/78 H Blood Pressure Mean BP Systolic 154 148 BP Diastolic 84 78 Blood Pressure Source Blood Pressure Position Blood Pressure Location Pulse Ox Oxygen Delivery Method 07/08/22 09:15 07/08/22 09:25 07/08/22 09:25 Temperature Temperature Source Pulse Rate 90 89 Respiratory Rate Respiratory Effort Respiratory Depth Respiratory Pattern Blood Pressure 146/80 H Blood Pressure Mean BP Systolic 146 BP Diastolic 80 Blood Pressure Source Blood Pressure Position Blood Pressure Location Pulse Ox Oxygen Delivery Method 07/08/22 09:41 07/08/22 09:41 07/08/22 09:46 Temperature Temperature Source Pulse Rate 96 Respiratory Rate Respiratory Effort Respiratory Depth Respiratory Pattern Blood Pressure 151/87 H 159/88 H Blood Pressure Mean BP Systolic 151 159 BP Diastolic 87 88 Blood Pressure Source Blood Pressure Position Blood Pressure Location Pulse Ox Oxygen Delivery Method 07/08/22 09:46 07/08/22 10:02 07/08/22 10:02 Temperature Temperature Source Pulse Rate 94 88 Respiratory Rate Respiratory Effort Respiratory Depth Respiratory Pattern Blood Pressure 162/79 H Blood Pressure Mean BP Systolic 162 BP Diastolic 79 Blood Pressure Source Blood Pressure Position Blood Pressure Location Pulse Ox Oxygen Delivery Method 07/08/22 10:16 07/08/22 10:16 07/08/22 10:33 Temperature Temperature Source Pulse Rate 93 Respiratory Rate Respiratory Effort Respiratory Depth Respiratory Pattern Blood Pressure 156/80 H 176/86 H Blood Pressure Mean BP Systolic 156 176 BP Diastolic 80 86 Blood Pressure Source Blood Pressure Position Blood Pressure Location Pulse Ox Oxygen Delivery Method 07/08/22 10:33 07/08/22 10:47 07/08/22 10:47 Temperature Temperature Source Pulse Rate 96 101 H Respiratory Rate Respiratory Effort Respiratory Depth Respiratory Pattern Blood Pressure 183/87 H Blood Pressure Mean BP Systolic 183 BP Diastolic 87 Blood Pressure Source Blood Pressure Position Blood Pressure Location Pulse Ox Oxygen Delivery Method 07/08/22 10:59 07/08/22 10:59 07/08/22 11:02 Temperature Temperature Source Pulse Rate 92 Respiratory Rate Respiratory Effort Respiratory Depth Respiratory Pattern Blood Pressure 145/71 H Blood Pressure Mean BP Systolic 145 BP Diastolic 71 Blood Pressure Source Blood Pressure Position Blood Pressure Location Pulse Ox 98 Oxygen Delivery Method 07/08/22 11:02 07/08/22 11:04 07/08/22 11:04 Temperature Temperature Source Pulse Rate 89 90 Respiratory Rate Respiratory Effort Respiratory Depth Respiratory Pattern Blood Pressure Blood Pressure Mean BP Systolic BP Diastolic Blood Pressure Source Blood Pressure Position Blood Pressure Location Pulse Ox 98 Oxygen Delivery Method 07/08/22 11:09 07/08/22 11:09 07/08/22 11:12 Temperature Temperature Source Pulse Rate 90 Respiratory Rate Respiratory Effort Respiratory Depth Respiratory Pattern Blood Pressure 141/67 H Blood Pressure Mean BP Systolic 141 BP Diastolic 67 Blood Pressure Source Blood Pressure Position Blood Pressure Location Pulse Ox 98 Oxygen Delivery Method 07/08/22 11:12 07/08/22 11:14 07/08/22 11:14 Temperature Temperature Source Pulse Rate 89 90 Respiratory Rate Respiratory Effort Respiratory Depth Respiratory Pattern Blood Pressure Blood Pressure Mean BP Systolic BP Diastolic Blood Pressure Source Blood Pressure Position Blood Pressure Location Pulse Ox 98 Oxygen Delivery Method 07/08/22 11:19 07/08/22 11:19 07/08/22 11:23 Temperature Temperature Source Pulse Rate 88 Respiratory Rate Respiratory Effort Respiratory Depth Respiratory Pattern Blood Pressure 145/71 H Blood Pressure Mean BP Systolic 145 BP Diastolic 71 Blood Pressure Source Blood Pressure Position Blood Pressure Location Pulse Ox 99 Oxygen Delivery Method 07/08/22 11:23 07/08/22 11:24 07/08/22 11:24 Temperature Temperature Source Pulse Rate 89 86 Respiratory Rate Respiratory Effort Respiratory Depth Respiratory Pattern Blood Pressure Blood Pressure Mean BP Systolic BP Diastolic Blood Pressure Source Blood Pressure Position Blood Pressure Location Pulse Ox 99 Oxygen Delivery Method 07/08/22 11:33 07/08/22 11:33 07/08/22 11:34 Temperature Temperature Source Pulse Rate 85 89 Respiratory Rate Respiratory Effort Respiratory Depth Respiratory Pattern Blood Pressure 144/83 H Blood Pressure Mean BP Systolic 144 BP Diastolic 83 Blood Pressure Source Blood Pressure Position Blood Pressure Location Pulse Ox Oxygen Delivery Method 07/08/22 11:34 07/08/22 11:40 07/08/22 11:40 Temperature Temperature Source Pulse Rate 83 Respiratory Rate Respiratory Effort Respiratory Depth Respiratory Pattern Blood Pressure Blood Pressure Mean BP Systolic BP Diastolic Blood Pressure Source Blood Pressure Position Blood Pressure Location Pulse Ox 98 99 Oxygen Delivery Method 07/08/22 11:42 07/08/22 11:42 07/08/22 11:44 Temperature Temperature Source Pulse Rate 82 81 Respiratory Rate Respiratory Effort Respiratory Depth Respiratory Pattern Blood Pressure 144/84 H Blood Pressure Mean BP Systolic 144 BP Diastolic 84 Blood Pressure Source Blood Pressure Position Blood Pressure Location Pulse Ox Oxygen Delivery Method 07/08/22 11:44 07/08/22 11:50 07/08/22 11:50 Temperature Temperature Source Pulse Rate 88 Respiratory Rate Respiratory Effort Respiratory Depth Respiratory Pattern Blood Pressure Blood Pressure Mean BP Systolic BP Diastolic Blood Pressure Source Blood Pressure Position Blood Pressure Location Pulse Ox 99 99 Oxygen Delivery Method 07/08/22 11:52 07/08/22 11:52 07/08/22 11:54 Temperature Temperature Source Pulse Rate 88 86 Respiratory Rate Respiratory Effort Respiratory Depth Respiratory Pattern Blood Pressure 151/82 H Blood Pressure Mean BP Systolic 151 BP Diastolic 82 Blood Pressure Source Blood Pressure Position Blood Pressure Location Pulse Ox Oxygen Delivery Method 07/08/22 11:54 07/08/22 12:00 07/08/22 12:00 Temperature Temperature Source Pulse Rate 85 Respiratory Rate Respiratory Effort Respiratory Depth Respiratory Pattern Blood Pressure Blood Pressure Mean BP Systolic BP Diastolic Blood Pressure Source Blood Pressure Position Blood Pressure Location Pulse Ox 99 99 Oxygen Delivery Method 07/08/22 12:02 07/08/22 12:02 07/08/22 12:04 Temperature Temperature Source Pulse Rate 87 84 Respiratory Rate Respiratory Effort Respiratory Depth Respiratory Pattern Blood Pressure 153/86 H Blood Pressure Mean BP Systolic 153 BP Diastolic 86 Blood Pressure Source Blood Pressure Position Blood Pressure Location Pulse Ox Oxygen Delivery Method 07/08/22 12:04 07/08/22 12:09 07/08/22 12:09 Temperature Temperature Source Pulse Rate 90 Respiratory Rate Respiratory Effort Respiratory Depth Respiratory Pattern Blood Pressure Blood Pressure Mean BP Systolic BP Diastolic Blood Pressure Source Blood Pressure Position Blood Pressure Location Pulse Ox 99 98 Oxygen Delivery Method 07/08/22 12:12 07/08/22 12:12 07/08/22 12:14 Temperature Temperature Source Pulse Rate 88 85 Respiratory Rate Respiratory Effort Respiratory Depth Respiratory Pattern Blood Pressure 153/84 H Blood Pressure Mean BP Systolic 153 BP Diastolic 84 Blood Pressure Source Blood Pressure Position Blood Pressure Location Pulse Ox Oxygen Delivery Method 07/08/22 12:14 07/08/22 12:19 07/08/22 12:19 Temperature Temperature Source Pulse Rate 92 Respiratory Rate Respiratory Effort Respiratory Depth Respiratory Pattern Blood Pressure Blood Pressure Mean BP Systolic BP Diastolic Blood Pressure Source Blood Pressure Position Blood Pressure Location Pulse Ox 98 98 Oxygen Delivery Method 07/08/22 12:22 07/08/22 12:22 07/08/22 12:24 Temperature Temperature Source Pulse Rate 83 89 Respiratory Rate Respiratory Effort Respiratory Depth Respiratory Pattern Blood Pressure 148/81 H Blood Pressure Mean BP Systolic 148 BP Diastolic 81 Blood Pressure Source Blood Pressure Position Blood Pressure Location Pulse Ox Oxygen Delivery Method 07/08/22 12:24 07/08/22 12:28 07/08/22 12:28 Temperature Temperature Source Pulse Rate 84 Respiratory Rate Respiratory Effort Respiratory Depth Respiratory Pattern Blood Pressure 146/81 H Blood Pressure Mean BP Systolic 146 BP Diastolic 81 Blood Pressure Source Blood Pressure Position Blood Pressure Location Pulse Ox 98 Oxygen Delivery Method 07/08/22 12:29 07/08/22 12:29 07/08/22 12:42 Temperature Temperature Source Pulse Rate 85 81 Respiratory Rate Respiratory Effort Respiratory Depth Respiratory Pattern Blood Pressure Blood Pressure Mean BP Systolic BP Diastolic Blood Pressure Source Blood Pressure Position Blood Pressure Location Pulse Ox 99 Oxygen Delivery Method 07/08/22 12:42 07/08/22 12:43 07/08/22 12:43 Temperature Temperature Source Pulse Rate 85 Respiratory Rate Respiratory Effort Respiratory Depth Respiratory Pattern Blood Pressure 155/86 H Blood Pressure Mean BP Systolic 155 BP Diastolic 86 Blood Pressure Source Blood Pressure Position Blood Pressure Location Pulse Ox 100 Oxygen Delivery Method 07/08/22 12:48 07/08/22 12:48 07/08/22 12:53 Temperature Temperature Source Pulse Rate 92 81 Respiratory Rate Respiratory Effort Respiratory Depth Respiratory Pattern Blood Pressure Blood Pressure Mean BP Systolic BP Diastolic Blood Pressure Source Blood Pressure Position Blood Pressure Location Pulse Ox 100 Oxygen Delivery Method 07/08/22 12:53 07/08/22 12:58 07/08/22 12:58 Temperature Temperature Source Pulse Rate 82 Respiratory Rate Respiratory Effort Respiratory Depth Respiratory Pattern Blood Pressure Blood Pressure Mean BP Systolic BP Diastolic Blood Pressure Source Blood Pressure Position Blood Pressure Location Pulse Ox 100 100 Oxygen Delivery Method 07/08/22 13:03 07/08/22 13:03 07/08/22 13:06 Temperature Temperature Source Pulse Rate 89 Respiratory Rate Respiratory Effort Respiratory Depth Respiratory Pattern Blood Pressure 144/82 H Blood Pressure Mean BP Systolic 144 BP Diastolic 82 Blood Pressure Source Blood Pressure Position Blood Pressure Location Pulse Ox 100 Oxygen Delivery Method 07/08/22 13:06 07/08/22 13:08 07/08/22 13:08 Temperature Temperature Source Pulse Rate 82 85 Respiratory Rate Respiratory Effort Respiratory Depth Respiratory Pattern Blood Pressure Blood Pressure Mean BP Systolic BP Diastolic Blood Pressure Source Blood Pressure Position Blood Pressure Location Pulse Ox 100 Oxygen Delivery Method 07/08/22 13:13 07/08/22 13:13 07/08/22 10:50 Temperature 97.8 F Temperature Source Temporal Pulse Rate 87 101 H Respiratory Rate 16 Respiratory Effort Normal Respiratory Depth Normal Respiratory Pattern Normal Blood Pressure 183/87 H Blood Pressure Mean 119 BP Systolic BP Diastolic Blood Pressure Source Monitor Blood Pressure Position Semi-Fowlers Blood Pressure Location Right Arm Pulse Ox 100 98 Oxygen Delivery Method Room Air 07/08/22 11:05 07/08/22 11:15 07/08/22 11:30 Temperature 97.2 F L Temperature Source Temporal Temporal Pulse Rate 89 89 91 Respiratory Rate 16 16 16 Respiratory Effort Respiratory Depth Respiratory Pattern Blood Pressure 145/71 H 145/71 H 144/83 H Blood Pressure Mean 95 95 103 BP Systolic BP Diastolic Blood Pressure Source Monitor Monitor Monitor Blood Pressure Position Semi-Fowlers Blood Pressure Location Right Arm Pulse Ox 98 99 98 Oxygen Delivery Method Room Air Room Air Room Air 07/08/22 12:00 07/08/22 12:29 07/08/22 13:05 Temperature 97.6 F L 97.5 F L 96.8 F L Temperature Source Temporal Temporal Temporal Pulse Rate 87 82 91 Respiratory Rate 16 16 16 Respiratory Effort Normal Normal Respiratory Depth Normal Normal Respiratory Pattern Normal Normal Blood Pressure 153/83 H 146/81 H 144/82 H Blood Pressure Mean 106 102 102 BP Systolic BP Diastolic Blood Pressure Source Monitor Monitor Blood Pressure Position Semi-Fowlers Semi-Fowlers Blood Pressure Location Right Arm Right Arm Pulse Ox 99 99 100 Oxygen Delivery Method Room Air Room Air Room Air Weight Weight: 286 lb 6 oz Body Mass Index (BMI) 46.2 Physical Exam Const alert, oriented x3 and healthy appearing Constitutional Narrative: uncomfortable with contractions HEENT normocephalic and moist oral mucous membranes Head and Scalp: atraumatic Neck full ROM, no lymphadenopathy, supple and thyroid normal General: trachea midline Thyroid: thyroid normal Lymph Lymphatic: no lymphadenopathy noted Chest inspection of chest normal Resp normal respiratory effort Cardio regular rate GI normal to inspection, nondistended, normoactive bowel sounds, soft to palpation and non-tender Inspection: gravid external exam normal Bimanual Exam - Vag & Uterus: uterus non-tender Manual OB Exam: estimated gestational size appropriate, presentation cephalic, dilated, effaced and station Extremity normal to inspection General Extremity: Negative for edema Skin no rashes or lesions noted Neuro deep tendon reflexes 2+ bilaterally Motor Exam: strength 5/5 throughout and clonus absent Psych mental status grossly normal Labs Labs Labs: Blood Type A POSITIVE Antibody Screen NEGATIVE Hct 32.6 % (37-47) L Hgb 10.6 g/dL (12.0-15.0) L Pap Smear Positive A Obstetrics US Syphilis Total Ab Non-reactive Rubella IgG Antibody Reactive (Nonreactive) Hep Bs Antigen Non-Reactive (Nonreactive) Chlamydia DNA (DESHAUN) Negative (Negative) Neisseria gonorrhoeae DNA (DESHAUN) Negative (Negative) HIV 1&2 Antibody Non-Reactive (Nonreactive) Glucose 1 Hr 50 gm 188 mg/dL (70-140) H Miscellaneous Test Assessment & Plan (1) Preeclampsia, severe: COMMENT: magnesium sulfate started IV labetalol (2) Infertility: COMMENT: 5 years of infertility, femara (3) : QUALIFIERS: Weeks of gestation: 32 weeks Qualified Code(s): Z3A.32 - 32 weeks gestation of COMMENT: GBS Negative, anatomy nl addtnl views in 2 wks nl, Carrier testing, NIPT low risk. afp negative (4) Supervision of high risk , antepartum: COMMENT: PRR ELVIS 07/27/22, boy evgeny Spouse Jose J (5) Obesity affecting : COMMENT: 1 TM GCT ordered, healthy weight gain encouraged (6) Gestational diabetes: COMMENT: HgA1c, glucometer readings fasting and 2 hrs pp, s/p referral to Endocrinolgist & [facility] rug hooker hand, wkly NST @ 32 wks growth q4 wks. On insulin. (7) Hypertension affecting : COMMENT: questionable- elevated at 2 visits. monitor bps and determine treatment needed, baseline labs ordered. EKG. repeats WNL and no meds. Elevated 05/07 and to WP (8) UTI in : COMMENT: once treated with keflex. 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 consider zoloft after done with reglan (12) Hypertension affecting : (13) Chronic hypertension with superimposed preeclampsia: COMMENT: plan 37 week delivery, recommend off work now until delivery PLAN: Plan Patient presents IOL, plan management for with fb cytotec then pitocin/AROM. Pain management: plans epidural. GBS negative. Management of any complications: none I have reviewed the [facility] and made any clinically relevant updates.
[2022-07-08] MEDS: Ondansetron 4 MG/2 ML Vial IV ×2 (13:57→18:01)
[2022-07-08 14:36] LABS: Bedside Glucose 105 mg/dL (74-106)
[2022-07-08] MEDS: Labetalol 100 MG Tablet PO (14:36)
[2022-07-08] MEDS: LACTATED RINGERS 500 ML 999 ML IV ×2 (15:53→16:53)
[2022-07-08 16:25] LABS: Bedside Glucose 95 mg/dL (74-106)
[2022-07-08] MEDS: fentaNYL-bupivacaine (epidural) 100 ML BAG EPIDURAL ×2 (16:54→21:07)
[2022-07-08 17:20] LABS: Bedside Glucose 92 mg/dL (74-106)
[2022-07-08] MEDS: Oxytocin 15 Units/NS 250ml 15 UNITS/250 ML IV.SOLN 2 UNITS IV (17:29)
[2022-07-08] MEDS: proCHLORPERazine 10 MG/2 ML Vial IV (20:39)
[2022-07-08] MEDS: Lactated Ringers 1,000 ML 200 ML IV (20:43)
[2022-07-08 21:06] LABS: Bedside Glucose 90 mg/dL (74-106)
[2022-07-09] VITALS (61 sets, daily range): BP systolic 116–168; BP diastolic 55–88; PULSE 85–104; RESP 16–18; TEMP 35.8–37.4; O2SAT 89–100
[2022-07-09 00:35] LABS: Bedside Glucose 92 mg/dL (74-106)
--- NOTE | 2022-07-09 00:50 | HP.PCM.OB_ITS ---
HPI - General General Date of Admission: 07/08/22 HPI Narrative KATARINA BAKER, is a 31 F who presents Maternal Data Information ELVIS Calculator Estimated Delivery Date Method Current WG Current Estimate 07/27/22 LMP (Certain) 37w 3d PFSH PFSH Medical History (Updated 07/09/22 @ 00:[address] Cuca Kelsey MD) Anxiety Depression Gestational diabetes Gestational HTN Headache Infertility Kidney stone PCOS (polycystic ovarian syndrome) pelvic floor tightness Home Medications docosahexaenoic acid 200 mg capsule ( DHA) 1 mg PO DAILY Check with primary doctor 07/31/21 [History Last Taken 06/23/22 10:00] pediatric multivitamin no.7-folic acid 100 mcg chewable tablet (Flintstones Multi-Vitamins Gummies) 1 tab PO DAILY Check with primary doctor 01/21/22 [History Last Taken 06/23/22 10:00] metoclopramide HCl 10 mg tablet (Reglan) 10 mg PO Q6H PRN nausea and vomiting #60 tabs 06/13/22 [Rx Last Taken Unknown] hydroxyzine pamoate 25 mg capsule (Vistaril) 25 mg PO BID PRN anxiety #30 caps 07/03/22 [Rx Last Taken Unknown] cephalexin 500 mg capsule 500 mg PO BID Check with primary doctor 07/08/22 [History Last Taken Unknown] insulin lispro 100 unit/mL subcutaneous pen (Humalog KwikPen (U-100) Insulin) 5 unit subcut .before supper Check with primary doctor 07/08/22 [History Last Taken Unknown] miscellaneous medical supply (Blood Pressure Cuff) 07/08/22 [History Last Taken Unknown] pen needle,diabetic dual safty 30 gauge x 3/16 (BD AutoShield Duo Pen Needle) 07/08/22 [History Last Taken Unknown] Allergy/AdvReac Type Severity Reaction Status Date / Time Sulfa (Sulfonamide Allergy Severe Hives Verified 07/08/22 09:18 Antibiotics) Penicillins Allergy Mild Vomiting Verified 07/08/22 09:18 latex Allergy Rash Verified 07/08/22 17:16 Family History Mother Hypertension Hypothyroidism Grandfather Prostate cancer Aunt Ovarian cancer Grandmother Mya's disease Heart disease Other Anxiety Arthritis Autoimmune disorder Blood clot in vein CVA (cerebral vascular accident) Cancer Depression Diabetes High cholesterol Hormone deficiency Kidney disease Myocardial infarction Osteoporosis Seizures Skin cancer Thyroid disorder Surgical History (Updated 07/08/22 @ 09:27 by Precious Rankin) History of surgery laparoscopic chromotubation Social History adopted: No household members: spouse housing: house number of children: 0 current occupational status: employed 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 current occupational exposures/hazards: No pets and animals: Yes pets and animals: cat(s), dog(s) and farm animals history of recent travel: No sexually active: Yes Smoking Status: Never smoker second hand exposure: No alcohol intake: current alcohol intake frequency: holidays/special occasions only details: Not while substance use type: does not use well-balanced diet: daily or most days caffeine: Yes what type of physical activity do you participate in: none lynn/voodoo: Worship seatbelt use: always do you feel safe at home: Yes additional social history: - [employer] Patient is dog catcher History 1 Elective abortions Hx Para 0 Spontaneous abortions Hx # Term Pregnancies Ectopic pregnancies Hx # Pregnancies Multiple births # of living children Visit Details Expected Delivery Route/Plan Labor Preferences- CB/BF classes: yes labor support person: Jose J labor intervention preferences: [] pain management options preferred: epidural cut cord/dad catch: yes : yes PP control planned: discussed discussed possible routes of delivery and associated risks: [] special requests: [] Plans Covid status: discussed Flu vaccine: declines Tdap vaccine: declines Rhogam:na LARC form signed: yes Problem list reviewed and updated with the most current plan of care details and appropriate orders placed. Relevant counseling for the gestational age provided. Continue routine care and follow up unless otherwise noted in visit notes/problem list details OB Flowsheet Initial Weight: Not Recorded Date -?-?-?-?-?-?-?-?-?-?-?-?- EGA Weight BP Urine Prot -?-?-?-?-?-?-?-?-?-?-?-?- Glucose FHR FuHt Pres Dilation -?-?-?-?-?-?-?-?-?-?-?-?- Effaced St Visit Note 12/24/21 -?-?-?-?-?-?-?-?-?-?-?-?- 9w 2d 272 lb 152/94 -?-?-?-?-?-?-?-?-?-?-?-?- 170 -?-?-?-?-?-?--?-?-?-?-?-?- SM- CRL cons wit h LMP SM- CRL cons 2.3cm with LMP 01/01/22 -?-?-?-?-?-?-?-?-?-?-?-?- 10w 3d 272 lb 2 oz 136/88 Nega tive -?-?-?-?-?-?-?-?-?-?--?-?- Negative 163 -?-?-?-?-?-?-?-?-?-?-?-?- JV- pt is being seen urgently to day for pink vaginal disharge. on exam there is a moderate amount of yeast but no blood. cx is closed. ultrasound showed good movement and FHT of 163. pt reassurred and recommend monistat. 01/21/22 -?-?-?-?-?-?-?-?-?-?-?-?- 13w 2d 270 lb 6 oz 145/83 Trac e -?-?-?-?-?-?-?-?-?-?-?-?- Negative 150 -?-?-?-?-?-?-?-?-?-?-?-?- SM- BS fairly we ll controlled, meeting with endocrine today 02/25/22 -?-?-?-?-?-?-?-?-?-?-?-?- 18w 2d 271 lb 126/76 -?-?-?-?-?-?-?-?-?-?-?-?- 145 -?-?-?-?-?-?-?-?-?-?-?-?- SM- co vaginal b urning. used external monistat still having itching. SM- co vaginal burning. use d external monistat still having itching. controlled BS 03/25/22 -?-?-?-?-?-?-?-?-?-?-?-?- 22w 2d 275 lb 2 oz 129/83 Nega tive -?-?-?-?-?-?-?-?-?-?-?-?- Negative 140 -?-?-?-?-?-?-?-?-?-?-?-?- SM- no vb lof go od fm no regular ctx. fu US scheduled. afp neg. BS fairly controlled 04/22/22 -?-?-?-?-?-?-?-?-?-?-?-?- 26w 2d 275 lb 134/82 -?-?-?-?-?-?-?-?-?-?-?-?- 140 26 -?-?-?-?-?-?-?-?-?-?-?-?- LC-no vb,lof,ctx . good fm. glucose mostly controlled, followed by endo. on abx for presumed UTI over the weekend. 05/07/22 -?-?-?-?-?-?-?-?-?-?-?-?- 28w 3d 279 lb 8 oz 164/86 Nega tive -?-?-?-?-?-?-?-?-?-?-?-?- Negative 148 29 0 -?-?-?-?-?-?-?-?-?-?-?-?- -concern with UTI and yeast. UA positive and macrobid sent. Comp vag culture pending/exam neg. Larc. To WP further eval due to HTN 05/21/22 -?-?-?-?-?-?-?-?-?-?-?-?- 30w 3d 281 lb 4 oz 164/88 139/87 Negative -?-?-?-?-?-?-?-?-?-?-?-?- Negative 139 31 -?-?-?-?-?-?-?-?-?-?-?-?- MH-No Vb, LOF. G ood FM. Initial BP elevated but 2nd reading WNL. Denies headache, vision changes. Has growth US scheduled and future NSTs. 06/04/22 -?-?-?-?-?-?-?-?-?-?-?-?- 32w 3d 279 lb 8 oz 138/81 Nega tive -?-?-?-?-?-?-?-?-?-?-?-?- Negative 140 -?-?-?-?-?-?-?-?-?-?-?-?- JV- UTI on dip t darcy. reactive NST pt on insulin now. plan for twice weekly nsts starting 36 weeks. weekly until then 06/18/22 -?-?-?-?-?-?-?-?-?-?-?-?- 34w 3d 278 lb 8 oz 138/86 Nega tive -?-?-?-?-?-?-?-?-?-?-?-?- Negative 140 35 -?-?-?-?-?-?-?-?-?-?-?-?- MH-No Vb, LOF an d good FM. Reactive NST. States high glucose this am, did not take insulin last night. Stressed importance in glucose managementy, needs to report to Dr Gonzalez today. Growth US 3 weeks 06/24/22 -?-?-?-?-?-?-?-?-?-?-?-?- 35w 2d 281 lb 8 oz 157/94 Nega tive -?-?-?-?-?-?-?-?-?-?-?-?- Negative 136 -?-?-?-?-?-?-?-?-?-?-?-?- MH-NST only but elevated BP, has headache. Tearful. To for monitoring and Pre E labs. 07/05/22 -?-?-?-?-?-?-?-?-?-?-?-?- 36w 6d 138/78 -?-?-?-?-?-?-?-?-?-?-?-?- 130 0 -?-?-?-?-?-?-?-?-?-?-?-?- 20 -3 LC-here fo r nst. glucose overall controlled with taking insulin. Has IOL scheduled. consent obtained. LC-here for nst. glucose ove rall controlled with taking insulin.IOL scheduled now for friday at 7pm. consent obtained. 07/08/22 -?-?-?-?-?-?-?-?-?-?-?-?- 37w 2d 286 lb 6 oz 201/103 187/96 182/95 143/78 145/80 146/80 146/82 154/84 148/78 146/80 151/87 159/88 162/79 156/80 176/86 183/87 183/87 145/71 145/71 141/67 145/71 145/71 144/83 144/83 144/84 151/82 153/83 153/86 153/84 148/81 146/81 146/81 155/86 144/82 144/82 150/83 162/77 167/88 162/77 182/91 169/90 148/85 152/88 152/88 156/87 165/84 152/79 132/73 132/73 133/72 132/69 142/75 153/83 136/64 118/61 89/51 97/54 91/55 96/54 96/54 107/56 122/64 116/56 147/74 140/71 138/70 157/74 160/72 169/77 134/67 142/72 148/73 -?-?-?-?-?-?-?-?-?-?-?-?- -?-?-?-?-?-?-?-?-?-?-?-?- Vital Signs Vital Signs Vital Signs: 07/08/22 07:30 07/08/22 07:30 07/08/22 07:50 Temperature Temperature Source Pulse Rate 98 Respiratory Rate Respiratory Effort Respiratory Depth Respiratory Pattern Blood Pressure 201/103 H 187/96 H Blood Pressure Mean BP Systolic 201 187 BP Diastolic 103 96 Blood Pressure Source Blood Pressure Position Blood Pressure Location Pulse Ox Oxygen Delivery Method 07/08/22 07:50 07/08/22 07:53 07/08/22 07:53 Temperature 98.9 F Temperature Source Temporal Pulse Rate 98 Respiratory Rate Respiratory Effort Respiratory Depth Respiratory Pattern Blood Pressure Blood Pressure Mean BP Systolic BP Diastolic Blood Pressure Source Blood Pressure Position Blood Pressure Location Pulse Ox Oxygen Delivery Method 07/08/22 08:08 07/08/22 08:08 07/08/22 08:09 Temperature Temperature Source Pulse Rate 100 98 Respiratory Rate Respiratory Effort Respiratory Depth Respiratory Pattern Blood Pressure 182/95 H Blood Pressure Mean BP Systolic 182 BP Diastolic 95 Blood Pressure Source Blood Pressure Position Blood Pressure Location Pulse Ox Oxygen Delivery Method 07/08/22 08:09 07/08/22 08:14 07/08/22 08:14 Temperature Temperature Source Pulse Rate 100 Respiratory Rate Respiratory Effort Respiratory Depth Respiratory Pattern Blood Pressure Blood Pressure Mean BP Systolic BP Diastolic Blood Pressure Source Blood Pressure Position Blood Pressure Location Pulse Ox 99 97 Oxygen Delivery Method 07/08/22 08:19 07/08/22 08:19 07/08/22 08:24 Temperature Temperature Source Pulse Rate 96 92 Respiratory Rate Respiratory Effort Respiratory Depth Respiratory Pattern Blood Pressure Blood Pressure Mean BP Systolic BP Diastolic Blood Pressure Source Blood Pressure Position Blood Pressure Location Pulse Ox 97 Oxygen Delivery Method 07/08/22 08:24 07/08/22 08:25 07/08/22 08:25 Temperature Temperature Source Pulse Rate 90 Respiratory Rate Respiratory Effort Respiratory Depth Respiratory Pattern Blood Pressure 143/78 H Blood Pressure Mean BP Systolic 143 BP Diastolic 78 Blood Pressure Source Blood Pressure Position Blood Pressure Location Pulse Ox 95 Oxygen Delivery Method 07/08/22 08:25 07/08/22 08:29 07/08/22 08:29 Temperature Temperature Source Pulse Rate 96 Respiratory Rate Respiratory Effort Respiratory Depth Respiratory Pattern Blood Pressure Blood Pressure Mean BP Systolic BP Diastolic Blood Pressure Source Blood Pressure Position Blood Pressure Location Pulse Ox 93 99 Oxygen Delivery Method 07/08/22 08:34 07/08/22 08:34 07/08/22 08:35 Temperature Temperature Source Pulse Rate 94 Respiratory Rate Respiratory Effort Respiratory Depth Respiratory Pattern Blood Pressure 145/80 H Blood Pressure Mean BP Systolic 145 BP Diastolic 80 Blood Pressure Source Blood Pressure Position Blood Pressure Location Pulse Ox 99 Oxygen Delivery Method 07/08/22 08:36 07/08/22 08:36 07/08/22 08:45 Temperature Temperature Source Pulse Rate 95 Respiratory Rate Respiratory Effort Respiratory Depth Respiratory Pattern Blood Pressure 146/80 H Blood Pressure Mean BP Systolic 146 BP Diastolic 80 Blood Pressure Source Blood Pressure Position Blood Pressure Location Pulse Ox 94 Oxygen Delivery Method 07/08/22 08:45 07/08/22 08:56 07/08/22 08:56 Temperature Temperature Source Pulse Rate 95 90 Respiratory Rate Respiratory Effort Respiratory Depth Respiratory Pattern Blood Pressure 146/82 H Blood Pressure Mean BP Systolic 146 BP Diastolic 82 Blood Pressure Source Blood Pressure Position Blood Pressure Location Pulse Ox Oxygen Delivery Method 07/08/22 09:05 07/08/22 09:05 07/08/22 09:15 Temperature Temperature Source Pulse Rate 93 Respiratory Rate Respiratory Effort Respiratory Depth Respiratory Pattern Blood Pressure 154/84 H 148/78 H Blood Pressure Mean BP Systolic 154 148 BP Diastolic 84 78 Blood Pressure Source Blood Pressure Position Blood Pressure Location Pulse Ox Oxygen Delivery Method 07/08/22 09:15 07/08/22 09:25 07/08/22 09:25 Temperature Temperature Source Pulse Rate 90 89 Respiratory Rate Respiratory Effort Respiratory Depth Respiratory Pattern Blood Pressure 146/80 H Blood Pressure Mean BP Systolic 146 BP Diastolic 80 Blood Pressure Source Blood Pressure Position Blood Pressure Location Pulse Ox Oxygen Delivery Method 07/08/22 09:41 07/08/22 09:41 07/08/22 09:46 Temperature Temperature Source Pulse Rate 96 Respiratory Rate Respiratory Effort Respiratory Depth Respiratory Pattern Blood Pressure 151/87 H 159/88 H Blood Pressure Mean BP Systolic 151 159 BP Diastolic 87 88 Blood Pressure Source Blood Pressure Position Blood Pressure Location Pulse Ox Oxygen Delivery Method 07/08/22 09:46 07/08/22 10:02 07/08/22 10:02 Temperature Temperature Source Pulse Rate 94 88 Respiratory Rate Respiratory Effort Respiratory Depth Respiratory Pattern Blood Pressure 162/79 H Blood Pressure Mean BP Systolic 162 BP Diastolic 79 Blood Pressure Source Blood Pressure Position Blood Pressure Location Pulse Ox Oxygen Delivery Method 07/08/22 10:16 07/08/22 10:16 07/08/22 10:33 Temperature Temperature Source Pulse Rate 93 Respiratory Rate Respiratory Effort Respiratory Depth Respiratory Pattern Blood Pressure 156/80 H 176/86 H Blood Pressure Mean BP Systolic 156 176 BP Diastolic 80 86 Blood Pressure Source Blood Pressure Position Blood Pressure Location Pulse Ox Oxygen Delivery Method 07/08/22 10:33 07/08/22 10:47 07/08/22 10:47 Temperature Temperature Source Pulse Rate 96 101 H Respiratory Rate Respiratory Effort Respiratory Depth Respiratory Pattern Blood Pressure 183/87 H Blood Pressure Mean BP Systolic 183 BP Diastolic 87 Blood Pressure Source Blood Pressure Position Blood Pressure Location Pulse Ox Oxygen Delivery Method 07/08/22 10:59 07/08/22 10:59 07/08/22 11:02 Temperature Temperature Source Pulse Rate 92 Respiratory Rate Respiratory Effort Respiratory Depth Respiratory Pattern Blood Pressure 145/71 H Blood Pressure Mean BP Systolic 145 BP Diastolic 71 Blood Pressure Source Blood Pressure Position Blood Pressure Location Pulse Ox 98 Oxygen Delivery Method 07/08/22 11:02 07/08/22 11:04 07/08/22 11:04 Temperature Temperature Source Pulse Rate 89 90 Respiratory Rate Respiratory Effort Respiratory Depth Respiratory Pattern Blood Pressure Blood Pressure Mean BP Systolic BP Diastolic Blood Pressure Source Blood Pressure Position Blood Pressure Location Pulse Ox 98 Oxygen Delivery Method 07/08/22 11:09 07/08/22 11:09 07/08/22 11:12 Temperature Temperature Source Pulse Rate 90 Respiratory Rate Respiratory Effort Respiratory Depth Respiratory Pattern Blood Pressure 141/67 H Blood Pressure Mean BP Systolic 141 BP Diastolic 67 Blood Pressure Source Blood Pressure Position Blood Pressure Location Pulse Ox 98 Oxygen Delivery Method 07/08/22 11:12 07/08/22 11:14 07/08/22 11:14 Temperature Temperature Source Pulse Rate 89 90 Respiratory Rate Respiratory Effort Respiratory Depth Respiratory Pattern Blood Pressure Blood Pressure Mean BP Systolic BP Diastolic Blood Pressure Source Blood Pressure Position Blood Pressure Location Pulse Ox 98 Oxygen Delivery Method 07/08/22 11:19 07/08/22 11:19 07/08/22 11:23 Temperature Temperature Source Pulse Rate 88 Respiratory Rate Respiratory Effort Respiratory Depth Respiratory Pattern Blood Pressure 145/71 H Blood Pressure Mean BP Systolic 145 BP Diastolic 71 Blood Pressure Source Blood Pressure Position Blood Pressure Location Pulse Ox 99 Oxygen Delivery Method 07/08/22 11:23 07/08/22 11:24 07/08/22 11:24 Temperature Temperature Source Pulse Rate 89 86 Respiratory Rate Respiratory Effort Respiratory Depth Respiratory Pattern Blood Pressure Blood Pressure Mean BP Systolic BP Diastolic Blood Pressure Source Blood Pressure Position Blood Pressure Location Pulse Ox 99 Oxygen Delivery Method 07/08/22 11:33 07/08/22 11:33 07/08/22 11:34 Temperature Temperature Source Pulse Rate 85 89 Respiratory Rate Respiratory Effort Respiratory Depth Respiratory Pattern Blood Pressure 144/83 H Blood Pressure Mean BP Systolic 144 BP Diastolic 83 Blood Pressure Source Blood Pressure Position Blood Pressure Location Pulse Ox Oxygen Delivery Method 07/08/22 11:34 07/08/22 11:40 07/08/22 11:40 Temperature Temperature Source Pulse Rate 83 Respiratory Rate Respiratory Effort Respiratory Depth Respiratory Pattern Blood Pressure Blood Pressure Mean BP Systolic BP Diastolic Blood Pressure Source Blood Pressure Position Blood Pressure Location Pulse Ox 98 99 Oxygen Delivery Method 07/08/22 11:42 07/08/22 11:42 07/08/22 11:44 Temperature Temperature Source Pulse Rate 82 81 Respiratory Rate Respiratory Effort Respiratory Depth Respiratory Pattern Blood Pressure 144/84 H Blood Pressure Mean BP Systolic 144 BP Diastolic 84 Blood Pressure Source Blood Pressure Position Blood Pressure Location Pulse Ox Oxygen Delivery Method 07/08/22 11:44 07/08/22 11:50 07/08/22 11:50 Temperature Temperature Source Pulse Rate 88 Respiratory Rate Respiratory Effort Respiratory Depth Respiratory Pattern Blood Pressure Blood Pressure Mean BP Systolic BP Diastolic Blood Pressure Source Blood Pressure Position Blood Pressure Location Pulse Ox 99 99 Oxygen Delivery Method 07/08/22 11:52 07/08/22 11:52 07/08/22 11:54 Temperature Temperature Source Pulse Rate 88 86 Respiratory Rate Respiratory Effort Respiratory Depth Respiratory Pattern Blood Pressure 151/82 H Blood Pressure Mean BP Systolic 151 BP Diastolic 82 Blood Pressure Source Blood Pressure Position Blood Pressure Location Pulse Ox Oxygen Delivery Method 07/08/22 11:54 07/08/22 12:00 07/08/22 12:00 Temperature Temperature Source Pulse Rate 85 Respiratory Rate Respiratory Effort Respiratory Depth Respiratory Pattern Blood Pressure Blood Pressure Mean BP Systolic BP Diastolic Blood Pressure Source Blood Pressure Position Blood Pressure Location Pulse Ox 99 99 Oxygen Delivery Method 07/08/22 12:02 07/08/22 12:02 07/08/22 12:04 Temperature Temperature Source Pulse Rate 87 84 Respiratory Rate Respiratory Effort Respiratory Depth Respiratory Pattern Blood Pressure 153/86 H Blood Pressure Mean BP Systolic 153 BP Diastolic 86 Blood Pressure Source Blood Pressure Position Blood Pressure Location Pulse Ox Oxygen Delivery Method 07/08/22 12:04 07/08/22 12:09 07/08/22 12:09 Temperature Temperature Source Pulse Rate 90 Respiratory Rate Respiratory Effort Respiratory Depth Respiratory Pattern Blood Pressure Blood Pressure Mean BP Systolic BP Diastolic Blood Pressure Source Blood Pressure Position Blood Pressure Location Pulse Ox 99 98 Oxygen Delivery Method 07/08/22 12:12 07/08/22 12:12 07/08/22 12:14 Temperature Temperature Source Pulse Rate 88 85 Respiratory Rate Respiratory Effort Respiratory Depth Respiratory Pattern Blood Pressure 153/84 H Blood Pressure Mean BP Systolic 153 BP Diastolic 84 Blood Pressure Source Blood Pressure Position Blood Pressure Location Pulse Ox Oxygen Delivery Method 07/08/22 12:14 07/08/22 12:19 07/08/22 12:19 Temperature Temperature Source Pulse Rate 92 Respiratory Rate Respiratory Effort Respiratory Depth Respiratory Pattern Blood Pressure Blood Pressure Mean BP Systolic BP Diastolic Blood Pressure Source Blood Pressure Position Blood Pressure Location Pulse Ox 98 98 Oxygen Delivery Method 07/08/22 12:22 07/08/22 12:22 07/08/22 12:24 Temperature Temperature Source Pulse Rate 83 89 Respiratory Rate Respiratory Effort Respiratory Depth Respiratory Pattern Blood Pressure 148/81 H Blood Pressure Mean BP Systolic 148 BP Diastolic 81 Blood Pressure Source Blood Pressure Position Blood Pressure Location Pulse Ox Oxygen Delivery Method 07/08/22 12:24 07/08/22 12:28 07/08/22 12:28 Temperature Temperature Source Pulse Rate 84 Respiratory Rate Respiratory Effort Respiratory Depth Respiratory Pattern Blood Pressure 146/81 H Blood Pressure Mean BP Systolic 146 BP Diastolic 81 Blood Pressure Source Blood Pressure Position Blood Pressure Location Pulse Ox 98 Oxygen Delivery Method 07/08/22 12:29 07/08/22 12:29 07/08/22 12:42 Temperature Temperature Source Pulse Rate 85 81 Respiratory Rate Respiratory Effort Respiratory Depth Respiratory Pattern Blood Pressure Blood Pressure Mean BP Systolic BP Diastolic Blood Pressure Source Blood Pressure Position Blood Pressure Location Pulse Ox 99 Oxygen Delivery Method 07/08/22 12:42 07/08/22 12:43 07/08/22 12:43 Temperature Temperature Source Pulse Rate 85 Respiratory Rate Respiratory Effort Respiratory Depth Respiratory Pattern Blood Pressure 155/86 H Blood Pressure Mean BP Systolic 155 BP Diastolic 86 Blood Pressure Source Blood Pressure Position Blood Pressure Location Pulse Ox 100 Oxygen Delivery Method 07/08/22 12:48 07/08/22 12:48 07/08/22 12:53 Temperature Temperature Source Pulse Rate 92 81 Respiratory Rate Respiratory Effort Respiratory Depth Respiratory Pattern Blood Pressure Blood Pressure Mean BP Systolic BP Diastolic Blood Pressure Source Blood Pressure Position Blood Pressure Location Pulse Ox 100 Oxygen Delivery Method 07/08/22 12:53 07/08/22 12:58 07/08/22 12:58 Temperature Temperature Source Pulse Rate 82 Respiratory Rate Respiratory Effort Respiratory Depth Respiratory Pattern Blood Pressure Blood Pressure Mean BP Systolic BP Diastolic Blood Pressure Source Blood Pressure Position Blood Pressure Location Pulse Ox 100 100 Oxygen Delivery Method 07/08/22 13:03 07/08/22 13:03 07/08/22 13:06 Temperature Temperature Source Pulse Rate 89 Respiratory Rate Respiratory Effort Respiratory Depth Respiratory Pattern Blood Pressure 144/82 H Blood Pressure Mean BP Systolic 144 BP Diastolic 82 Blood Pressure Source Blood Pressure Position Blood Pressure Location Pulse Ox 100 Oxygen Delivery Method 07/08/22 13:06 07/08/22 13:08 07/08/22 13:08 Temperature Temperature Source Pulse Rate 82 85 Respiratory Rate Respiratory Effort Respiratory Depth Respiratory Pattern Blood Pressure Blood Pressure Mean BP Systolic BP Diastolic Blood Pressure Source Blood Pressure Position Blood Pressure Location Pulse Ox 100 Oxygen Delivery Method 07/08/22 13:13 07/08/22 13:13 07/08/22 13:18 Temperature Temperature Source Pulse Rate 87 85 Respiratory Rate Respiratory Effort Respiratory Depth Respiratory Pattern Blood Pressure Blood Pressure Mean BP Systolic BP Diastolic Blood Pressure Source Blood Pressure Position Blood Pressure Location Pulse Ox 100 Oxygen Delivery Method 07/08/22 13:18 07/08/22 13:23 07/08/22 13:23 Temperature Temperature Source Pulse Rate 90 Respiratory Rate Respiratory Effort Respiratory Depth Respiratory Pattern Blood Pressure Blood Pressure Mean BP Systolic BP Diastolic Blood Pressure Source Blood Pressure Position Blood Pressure Location Pulse Ox 100 100 Oxygen Delivery Method 07/08/22 13:26 07/08/22 13:26 07/08/22 13:28 Temperature Temperature Source Pulse Rate 82 91 Respiratory Rate Respiratory Effort Respiratory Depth Respiratory Pattern Blood Pressure 150/83 H Blood Pressure Mean BP Systolic 150 BP Diastolic 83 Blood Pressure Source Blood Pressure Position Blood Pressure Location Pulse Ox Oxygen Delivery Method 07/08/22 13:28 07/08/22 13:33 07/08/22 13:33 Temperature Temperature Source Pulse Rate 89 Respiratory Rate Respiratory Effort Respiratory Depth Respiratory Pattern Blood Pressure Blood Pressure Mean BP Systolic BP Diastolic Blood Pressure Source Blood Pressure Position Blood Pressure Location Pulse Ox 100 100 Oxygen Delivery Method 07/08/22 13:38 07/08/22 13:38 07/08/22 13:49 Temperature Temperature Source Pulse Rate 95 90 Respiratory Rate Respiratory Effort Respiratory Depth Respiratory Pattern Blood Pressure Blood Pressure Mean BP Systolic BP Diastolic Blood Pressure Source Blood Pressure Position Blood Pressure Location Pulse Ox 100 Oxygen Delivery Method 07/08/22 13:49 07/08/22 13:55 07/08/22 13:55 Temperature Temperature Source Pulse Rate 85 Respiratory Rate Respiratory Effort Respiratory Depth Respiratory Pattern Blood Pressure 162/77 H Blood Pressure Mean BP Systolic 162 BP Diastolic 77 Blood Pressure Source Blood Pressure Position Blood Pressure Location Pulse Ox 100 Oxygen Delivery Method 07/08/22 13:54 07/08/22 13:56 07/08/22 13:56 Temperature Temperature Source Pulse Rate 90 Respiratory Rate Respiratory Effort Respiratory Depth Respiratory Pattern Blood Pressure 167/88 H Blood Pressure Mean BP Systolic 167 BP Diastolic 88 Blood Pressure Source Blood Pressure Position Blood Pressure Location Pulse Ox 100 Oxygen Delivery Method 07/08/22 13:59 07/08/22 13:59 07/08/22 14:04 Temperature Temperature Source Pulse Rate 87 85 Respiratory Rate Respiratory Effort Respiratory Depth Respiratory Pattern Blood Pressure Blood Pressure Mean BP Systolic BP Diastolic Blood Pressure Source Blood Pressure Position Blood Pressure Location Pulse Ox 100 Oxygen Delivery Method 07/08/22 14:04 07/08/22 14:09 07/08/22 14:09 Temperature Temperature Source Pulse Rate 87 Respiratory Rate Respiratory Effort Respiratory Depth Respiratory Pattern Blood Pressure Blood Pressure Mean BP Systolic BP Diastolic Blood Pressure Source Blood Pressure Position Blood Pressure Location Pulse Ox 100 100 Oxygen Delivery Method 07/08/22 14:14 07/08/22 14:14 07/08/22 14:16 Temperature Temperature Source Pulse Rate 89 Respiratory Rate Respiratory Effort Respiratory Depth Respiratory Pattern Blood Pressure 182/91 H Blood Pressure Mean BP Systolic 182 BP Diastolic 91 Blood Pressure Source Blood Pressure Position Blood Pressure Location Pulse Ox 100 Oxygen Delivery Method 07/08/22 14:16 07/08/22 14:19 07/08/22 14:19 Temperature Temperature Source Pulse Rate 90 82 Respiratory Rate Respiratory Effort Respiratory Depth Respiratory Pattern Blood Pressure Blood Pressure Mean BP Systolic BP Diastolic Blood Pressure Source Blood Pressure Position Blood Pressure Location Pulse Ox 100 Oxygen Delivery Method 07/08/22 14:24 07/08/22 14:24 07/08/22 14:29 Temperature Temperature Source Pulse Rate 92 94 Respiratory Rate Respiratory Effort Respiratory Depth Respiratory Pattern Blood Pressure Blood Pressure Mean BP Systolic BP Diastolic Blood Pressure Source Blood Pressure Position Blood Pressure Location Pulse Ox 100 Oxygen Delivery Method 07/08/22 14:29 07/08/22 14:31 07/08/22 14:31 Temperature Temperature Source Pulse Rate 87 Respiratory Rate Respiratory Effort Respiratory Depth Respiratory Pattern Blood Pressure 169/90 H Blood Pressure Mean BP Systolic 169 BP Diastolic 90 Blood Pressure Source Blood Pressure Position Blood Pressure Location Pulse Ox 100 Oxygen Delivery Method 07/08/22 14:34 07/08/22 14:34 07/08/22 14:39 Temperature Temperature Source Pulse Rate 89 90 Respiratory Rate Respiratory Effort Respiratory Depth Respiratory Pattern Blood Pressure Blood Pressure Mean BP Systolic BP Diastolic Blood Pressure Source Blood Pressure Position Blood Pressure Location Pulse Ox 100 Oxygen Delivery Method 07/08/22 14:39 07/08/22 14:44 07/08/22 14:44 Temperature Temperature Source Pulse Rate 86 Respiratory Rate Respiratory Effort Respiratory Depth Respiratory Pattern Blood Pressure Blood Pressure Mean BP Systolic BP Diastolic Blood Pressure Source Blood Pressure Position Blood Pressure Location Pulse Ox 100 100 Oxygen Delivery Method 07/08/22 14:49 07/08/22 14:49 07/08/22 14:51 Temperature Temperature Source Pulse Rate 86 Respiratory Rate Respiratory Effort Respiratory Depth Respiratory Pattern Blood Pressure 148/85 H Blood Pressure Mean BP Systolic 148 BP Diastolic 85 Blood Pressure Source Blood Pressure Position Blood Pressure Location Pulse Ox 100 Oxygen Delivery Method 07/08/22 14:51 07/08/22 14:54 07/08/22 14:54 Temperature Temperature Source Pulse Rate 84 86 Respiratory Rate Respiratory Effort Respiratory Depth Respiratory Pattern Blood Pressure Blood Pressure Mean BP Systolic BP Diastolic Blood Pressure Source Blood Pressure Position Blood Pressure Location Pulse Ox 100 Oxygen Delivery Method 07/08/22 14:59 07/08/22 14:59 07/08/22 15:01 Temperature Temperature Source Pulse Rate 87 Respiratory Rate Respiratory Effort Respiratory Depth Respiratory Pattern Blood Pressure 152/88 H Blood Pressure Mean BP Systolic 152 BP Diastolic 88 Blood Pressure Source Blood Pressure Position Blood Pressure Location Pulse Ox 100 Oxygen Delivery Method 07/08/22 15:01 07/08/22 15:04 07/08/22 15:04 Temperature Temperature Source Pulse Rate 83 82 Respiratory Rate Respiratory Effort Respiratory Depth Respiratory Pattern Blood Pressure Blood Pressure Mean BP Systolic BP Diastolic Blood Pressure Source Blood Pressure Position Blood Pressure Location Pulse Ox 100 Oxygen Delivery Method 07/08/22 15:09 07/08/22 15:09 07/08/22 15:11 Temperature Temperature Source Pulse Rate 86 Respiratory Rate Respiratory Effort Respiratory Depth Respiratory Pattern Blood Pressure 156/87 H Blood Pressure Mean BP Systolic 156 BP Diastolic 87 Blood Pressure Source Blood Pressure Position Blood Pressure Location Pulse Ox 100 Oxygen Delivery Method 07/08/22 15:11 07/08/22 15:14 07/08/22 15:14 Temperature Temperature Source Pulse Rate 81 83 Respiratory Rate Respiratory Effort Respiratory Depth Respiratory Pattern Blood Pressure Blood Pressure Mean BP Systolic BP Diastolic Blood Pressure Source Blood Pressure Position Blood Pressure Location Pulse Ox 99 Oxygen Delivery Method 07/08/22 15:19 07/08/22 15:19 07/08/22 15:21 Temperature Temperature Source Pulse Rate 87 Respiratory Rate Respiratory Effort Respiratory Depth Respiratory Pattern Blood Pressure 165/84 H Blood Pressure Mean BP Systolic 165 BP Diastolic 84 Blood Pressure Source Blood Pressure Position Blood Pressure Location Pulse Ox 100 Oxygen Delivery Method 07/08/22 15:21 07/08/22 15:24 07/08/22 15:24 Temperature Temperature Source Pulse Rate 87 86 Respiratory Rate Respiratory Effort Respiratory Depth Respiratory Pattern Blood Pressure Blood Pressure Mean BP Systolic BP Diastolic Blood Pressure Source Blood Pressure Position Blood Pressure Location Pulse Ox 100 Oxygen Delivery Method 07/08/22 15:29 07/08/22 15:29 07/08/22 15:31 Temperature Temperature Source Pulse Rate 83 Respiratory Rate Respiratory Effort Respiratory Depth Respiratory Pattern Blood Pressure 152/79 H Blood Pressure Mean BP Systolic 152 BP Diastolic 79 Blood Pressure Source Blood Pressure Position Blood Pressure Location Pulse Ox 100 Oxygen Delivery Method 07/08/22 15:31 07/08/22 15:53 07/08/22 15:53 Temperature Temperature Source Pulse Rate 85 93 Respiratory Rate Respiratory Effort Respiratory Depth Respiratory Pattern Blood Pressure Blood Pressure Mean BP Systolic BP Diastolic Blood Pressure Source Blood Pressure Position Blood Pressure Location Pulse Ox 100 Oxygen Delivery Method 07/08/22 15:58 07/08/22 15:58 07/08/22 15:58 Temperature Temperature Source Pulse Rate 92 Respiratory Rate Respiratory Effort Respiratory Depth Respiratory Pattern Blood Pressure 132/73 H Blood Pressure Mean BP Systolic 132 BP Diastolic 73 Blood Pressure Source Blood Pressure Position Blood Pressure Location Pulse Ox 100 Oxygen Delivery Method 07/08/22 16:03 07/08/22 16:03 07/08/22 16:05 Temperature Temperature Source Pulse Rate 97 Respiratory Rate Respiratory Effort Respiratory Depth Respiratory Pattern Blood Pressure 133/72 H Blood Pressure Mean BP Systolic 133 BP Diastolic 72 Blood Pressure Source Blood Pressure Position Blood Pressure Location Pulse Ox 100 Oxygen Delivery Method 07/08/22 16:05 07/08/22 16:08 07/08/22 16:08 Temperature Temperature Source Pulse Rate 90 91 Respiratory Rate Respiratory Effort Respiratory Depth Respiratory Pattern Blood Pressure Blood Pressure Mean BP Systolic BP Diastolic Blood Pressure Source Blood Pressure Position Blood Pressure Location Pulse Ox 100 Oxygen Delivery Method 07/08/22 16:12 07/08/22 16:12 07/08/22 16:13 Temperature Temperature Source Pulse Rate 91 88 Respiratory Rate Respiratory Effort Respiratory Depth Respiratory Pattern Blood Pressure 132/69 H Blood Pressure Mean BP Systolic 132 BP Diastolic 69 Blood Pressure Source Blood Pressure Position Blood Pressure Location Pulse Ox Oxygen Delivery Method 07/08/22 16:13 07/08/22 16:18 07/08/22 16:18 Temperature Temperature Source Pulse Rate 93 Respiratory Rate Respiratory Effort Respiratory Depth Respiratory Pattern Blood Pressure Blood Pressure Mean BP Systolic BP Diastolic Blood Pressure Source Blood Pressure Position Blood Pressure Location Pulse Ox 99 100 Oxygen Delivery Method 07/08/22 16:21 07/08/22 16:21 07/08/22 16:23 Temperature Temperature Source Pulse Rate 94 98 Respiratory Rate Respiratory Effort Respiratory Depth Respiratory Pattern Blood Pressure 142/75 H Blood Pressure Mean BP Systolic 142 BP Diastolic 75 Blood Pressure Source Blood Pressure Position Blood Pressure Location Pulse Ox Oxygen Delivery Method 07/08/22 16:23 07/08/22 16:25 07/08/22 16:28 Temperature Temperature Source Pulse Rate 109 H Respiratory Rate Respiratory Effort Respiratory Depth Respiratory Pattern Blood Pressure Blood Pressure Mean BP Systolic BP Diastolic Blood Pressure Source Blood Pressure Position Blood Pressure Location Pulse Ox 100 81 Oxygen Delivery Method 07/08/22 16:28 07/08/22 16:31 07/08/22 16:31 Temperature Temperature Source Pulse Rate 106 H Respiratory Rate Respiratory Effort Respiratory Depth Respiratory Pattern Blood Pressure 153/83 H Blood Pressure Mean BP Systolic 153 BP Diastolic 83 Blood Pressure Source Blood Pressure Position Blood Pressure Location Pulse Ox 98 Oxygen Delivery Method 07/08/22 16:34 07/08/22 16:34 07/08/22 16:34 Temperature Temperature Source Pulse Rate 101 H 103 H Respiratory Rate Respiratory Effort Respiratory Depth Respiratory Pattern Blood Pressure Blood Pressure Mean BP Systolic BP Diastolic Blood Pressure Source Blood Pressure Position Blood Pressure Location Pulse Ox 94 Oxygen Delivery Method 07/08/22 16:34 07/08/22 16:36 07/08/22 16:36 Temperature Temperature Source Pulse Rate 94 Respiratory Rate Respiratory Effort Respiratory Depth Respiratory Pattern Blood Pressure 136/64 H Blood Pressure Mean BP Systolic 136 BP Diastolic 64 Blood Pressure Source Blood Pressure Position Blood Pressure Location Pulse Ox 99 Oxygen Delivery Method 07/08/22 16:39 07/08/22 16:39 07/08/22 16:41 Temperature Temperature Source Pulse Rate 88 Respiratory Rate Respiratory Effort Respiratory Depth Respiratory Pattern Blood Pressure 118/61 Blood Pressure Mean BP Systolic 118 BP Diastolic 61 Blood Pressure Source Blood Pressure Position Blood Pressure Location Pulse Ox 97 Oxygen Delivery Method 07/08/22 16:41 07/08/22 16:44 07/08/22 16:44 Temperature Temperature Source Pulse Rate 90 88 Respiratory Rate Respiratory Effort Respiratory Depth Respiratory Pattern Blood Pressure Blood Pressure Mean BP Systolic BP Diastolic Blood Pressure Source Blood Pressure Position Blood Pressure Location Pulse Ox 96 Oxygen Delivery Method 07/08/22 16:47 07/08/22 16:47 07/08/22 16:49 Temperature Temperature Source Pulse Rate 75 88 Respiratory Rate Respiratory Effort Respiratory Depth Respiratory Pattern Blood Pressure 89/51 L Blood Pressure Mean BP Systolic 89 BP Diastolic 51 Blood Pressure Source Blood Pressure Position Blood Pressure Location Pulse Ox Oxygen Delivery Method 07/08/22 16:49 07/08/22 16:51 07/08/22 16:51 Temperature Temperature Source Pulse Rate 85 Respiratory Rate Respiratory Effort Respiratory Depth Respiratory Pattern Blood Pressure 97/54 L Blood Pressure Mean BP Systolic 97 BP Diastolic 54 Blood Pressure Source Blood Pressure Position Blood Pressure Location Pulse Ox 100 Oxygen Delivery Method 07/08/22 16:54 07/08/22 16:54 07/08/22 16:56 Temperature Temperature Source Pulse Rate 80 Respiratory Rate Respiratory Effort Respiratory Depth Respiratory Pattern Blood Pressure 91/55 L Blood Pressure Mean BP Systolic 91 BP Diastolic 55 Blood Pressure Source Blood Pressure Position Blood Pressure Location Pulse Ox 100 Oxygen Delivery Method 07/08/22 16:56 07/08/22 16:59 07/08/22 16:59 Temperature Temperature Source Pulse Rate 74 86 Respiratory Rate Respiratory Effort Respiratory Depth Respiratory Pattern Blood Pressure Blood Pressure Mean BP Systolic BP Diastolic Blood Pressure Source Blood Pressure Position Blood Pressure Location Pulse Ox 100 Oxygen Delivery Method 07/08/22 17:01 07/08/22 17:01 07/08/22 17:04 Temperature Temperature Source Pulse Rate 78 89 Respiratory Rate Respiratory Effort Respiratory Depth Respiratory Pattern Blood Pressure 96/54 L Blood Pressure Mean BP Systolic 96 BP Diastolic 54 Blood Pressure Source Blood Pressure Position Blood Pressure Location Pulse Ox Oxygen Delivery Method 07/08/22 17:04 07/08/22 17:06 07/08/22 17:06 Temperature Temperature Source Pulse Rate 82 Respiratory Rate Respiratory Effort Respiratory Depth Respiratory Pattern Blood Pressure 107/56 L Blood Pressure Mean BP Systolic 107 BP Diastolic 56 Blood Pressure Source Blood Pressure Position Blood Pressure Location Pulse Ox 99 Oxygen Delivery Method 07/08/22 17:09 07/08/22 17:09 07/08/22 17:14 Temperature Temperature Source Pulse Rate 89 90 Respiratory Rate Respiratory Effort Respiratory Depth Respiratory Pattern Blood Pressure Blood Pressure Mean BP Systolic BP Diastolic Blood Pressure Source Blood Pressure Position Blood Pressure Location Pulse Ox 100 Oxygen Delivery Method 07/08/22 17:14 07/08/22 17:19 07/08/22 17:19 Temperature Temperature Source Pulse Rate 91 Respiratory Rate Respiratory Effort Respiratory Depth Respiratory Pattern Blood Pressure Blood Pressure Mean BP Systolic BP Diastolic Blood Pressure Source Blood Pressure Position Blood Pressure Location Pulse Ox 99 100 Oxygen Delivery Method 07/08/22 17:24 07/08/22 17:24 07/08/22 17:29 Temperature Temperature Source Pulse Rate 92 89 Respiratory Rate Respiratory Effort Respiratory Depth Respiratory Pattern Blood Pressure Blood Pressure Mean BP Systolic BP Diastolic Blood Pressure Source Blood Pressure Position Blood Pressure Location Pulse Ox 100 Oxygen Delivery Method 07/08/22 17:29 07/08/22 17:33 07/08/22 17:33 Temperature Temperature Source Pulse Rate 90 Respiratory Rate Respiratory Effort Respiratory Depth Respiratory Pattern Blood Pressure 122/64 H Blood Pressure Mean BP Systolic 122 BP Diastolic 64 Blood Pressure Source Blood Pressure Position Blood Pressure Location Pulse Ox 99 Oxygen Delivery Method 07/08/22 17:34 07/08/22 17:34 07/08/22 17:39 Temperature Temperature Source Pulse Rate 92 93 Respiratory Rate Respiratory Effort Respiratory Depth Respiratory Pattern Blood Pressure Blood Pressure Mean BP Systolic BP Diastolic Blood Pressure Source Blood Pressure Position Blood Pressure Location Pulse Ox 99 Oxygen Delivery Method 07/08/22 17:39 07/08/22 17:44 07/08/22 17:44 Temperature Temperature Source Pulse Rate 96 Respiratory Rate Respiratory Effort Respiratory Depth Respiratory Pattern Blood Pressure Blood Pressure Mean BP Systolic BP Diastolic Blood Pressure Source Blood Pressure Position Blood Pressure Location Pulse Ox 100 99 Oxygen Delivery Method 07/08/22 17:49 07/08/22 17:49 07/08/22 17:55 Temperature Temperature Source Pulse Rate 87 92 Respiratory Rate Respiratory Effort Respiratory Depth Respiratory Pattern Blood Pressure Blood Pressure Mean BP Systolic BP Diastolic Blood Pressure Source Blood Pressure Position Blood Pressure Location Pulse Ox 99 Oxygen Delivery Method 07/08/22 17:55 07/08/22 17:55 07/08/22 17:55 Temperature Temperature Source Temporal Pulse Rate Respiratory Rate Respiratory Effort Respiratory Depth Respiratory Pattern Blood Pressure Blood Pressure Mean BP Systolic BP Diastolic Blood Pressure Source Blood Pressure Position Blood Pressure Location Pulse Ox 99 99 Oxygen Delivery Method 07/08/22 17:55 07/08/22 17:57 07/08/22 17:57 Temperature 98.6 F Temperature Source Pulse Rate 87 Respiratory Rate Respiratory Effort Respiratory Depth Respiratory Pattern Blood Pressure 116/56 L Blood Pressure Mean BP Systolic 116 BP Diastolic 56 Blood Pressure Source Blood Pressure Position Blood Pressure Location Pulse Ox Oxygen Delivery Method 07/08/22 19:28 07/08/22 19:28 07/08/22 19:27 Temperature Temperature Source Pulse Rate 93 Respiratory Rate Respiratory Effort Respiratory Depth Respiratory Pattern Blood Pressure 147/74 H Blood Pressure Mean BP Systolic 147 BP Diastolic 74 Blood Pressure Source Blood Pressure Position Blood Pressure Location Pulse Ox 98 Oxygen Delivery Method 07/08/22 19:28 07/08/22 19:28 07/08/22 20:16 Temperature 98.2 F Temperature Source Temporal Temporal Pulse Rate Respiratory Rate Respiratory Effort Respiratory Depth Respiratory Pattern Blood Pressure Blood Pressure Mean BP Systolic BP Diastolic Blood Pressure Source Blood Pressure Position Blood Pressure Location Pulse Ox Oxygen Delivery Method 07/08/22 20:16 07/08/22 20:16 07/08/22 20:16 Temperature 98.1 F Temperature Source Pulse Rate 86 Respiratory Rate Respiratory Effort Respiratory Depth Respiratory Pattern Blood Pressure 140/71 H Blood Pressure Mean BP Systolic 140 BP Diastolic 71 Blood Pressure Source Blood Pressure Position Blood Pressure Location Pulse Ox Oxygen Delivery Method 07/08/22 21:08 07/08/22 21:08 07/08/22 21:08 Temperature Temperature Source Pulse Rate 89 Respiratory Rate Respiratory Effort Respiratory Depth Respiratory Pattern Blood Pressure 138/70 H Blood Pressure Mean BP Systolic 138 BP Diastolic 70 Blood Pressure Source Blood Pressure Position Blood Pressure Location Pulse Ox 99 Oxygen Delivery Method 07/08/22 21:08 07/08/22 21:08 07/08/22 22:12 Temperature 97.8 F Temperature Source Temporal Pulse Rate Respiratory Rate Respiratory Effort Respiratory Depth Respiratory Pattern Blood Pressure 157/74 H Blood Pressure Mean BP Systolic 157 BP Diastolic 74 Blood Pressure Source Blood Pressure Position Blood Pressure Location Pulse Ox Oxygen Delivery Method 07/08/22 22:12 07/08/22 22:12 07/08/22 22:13 Temperature Temperature Source Temporal Pulse Rate 99 Respiratory Rate Respiratory Effort Respiratory Depth Respiratory Pattern Blood Pressure 160/72 H Blood Pressure Mean BP Systolic 160 BP Diastolic 72 Blood Pressure Source Blood Pressure Position Blood Pressure Location Pulse Ox Oxygen Delivery Method 07/08/22 22:13 07/08/22 22:12 07/08/22 22:14 Temperature 97.8 F Temperature Source Pulse Rate 94 Respiratory Rate Respiratory Effort Respiratory Depth Respiratory Pattern Blood Pressure 169/77 H Blood Pressure Mean BP Systolic 169 BP Diastolic 77 Blood Pressure Source Blood Pressure Position Blood Pressure Location Pulse Ox Oxygen Delivery Method 07/08/22 22:14 07/08/22 22:31 07/08/22 22:31 Temperature Temperature Source Pulse Rate 96 95 Respiratory Rate Respiratory Effort Respiratory Depth Respiratory Pattern Blood Pressure 134/67 H Blood Pressure Mean BP Systolic 134 BP Diastolic 67 Blood Pressure Source Blood Pressure Position Blood Pressure Location Pulse Ox Oxygen Delivery Method 07/08/22 22:47 07/08/22 22:47 07/09/22 00:08 Temperature Temperature Source Pulse Rate 93 96 Respiratory Rate Respiratory Effort Respiratory Depth Respiratory Pattern Blood Pressure 142/72 H Blood Pressure Mean BP Systolic 142 BP Diastolic 72 Blood Pressure Source Blood Pressure Position Blood Pressure Location Pulse Ox Oxygen Delivery Method 07/09/22 00:08 07/09/22 00:09 07/09/22 00:09 Temperature Temperature Source Pulse Rate 96 Respiratory Rate Respiratory Effort Respiratory Depth Respiratory Pattern Blood Pressure 148/73 H Blood Pressure Mean BP Systolic 148 BP Diastolic 73 Blood Pressure Source Blood Pressure Position Blood Pressure Location Pulse Ox 93 Oxygen Delivery Method 07/09/22 00:09 07/09/22 00:09 07/09/22 00:09 Temperature Temperature Source Temporal Pulse Rate Respiratory Rate Respiratory Effort Respiratory Depth Respiratory Pattern Blood Pressure Blood Pressure Mean BP Systolic BP Diastolic Blood Pressure Source Blood Pressure Position Blood Pressure Location Pulse Ox 93 95 Oxygen Delivery Method 07/09/22 00:09 07/08/22 10:50 07/08/22 11:05 Temperature 99.3 F H 97.8 F 97.2 F L Temperature Source Temporal Temporal Pulse Rate 101 H 89 Respiratory Rate 16 16 Respiratory Effort Normal Respiratory Depth Normal Respiratory Pattern Normal Blood Pressure 183/87 H 145/71 H Blood Pressure Mean 119 95 BP Systolic BP Diastolic Blood Pressure Source Monitor Monitor Blood Pressure Position Semi-Fowlers Blood Pressure Location Right Arm Pulse Ox 98 98 Oxygen Delivery Method Room Air Room Air 07/08/22 11:15 07/08/22 11:30 07/08/22 12:00 Temperature 97.6 F L Temperature Source Temporal Temporal Pulse Rate 89 91 87 Respiratory Rate 16 16 16 Respiratory Effort Normal Respiratory Depth Normal Respiratory Pattern Normal Blood Pressure 145/71 H 144/83 H 153/83 H Blood Pressure Mean 95 103 106 BP Systolic BP Diastolic Blood Pressure Source Monitor Monitor Blood Pressure Position Semi-Fowlers Blood Pressure Location Right Arm Pulse Ox 99 98 99 Oxygen Delivery Method Room Air Room Air Room Air 07/08/22 12:29 07/08/22 13:05 07/08/22 14:05 Temperature 97.5 F L 96.8 F L 97.3 F L Temperature Source Temporal Temporal Temporal Pulse Rate 82 91 85 Respiratory Rate 16 16 16 Respiratory Effort Normal Respiratory Depth Normal Respiratory Pattern Normal Blood Pressure 146/81 H 144/82 H 162/77 H Blood Pressure Mean 102 102 105 BP Systolic BP Diastolic Blood Pressure Source Monitor Monitor Monitor Blood Pressure Position Semi-Fowlers Semi-Fowlers Semi-Fowlers Blood Pressure Location Right Arm Right Arm Left Arm Pulse Ox 99 100 100 Oxygen Delivery Method Room Air Room Air Room Air 07/08/22 15:00 07/08/22 16:03 07/08/22 17:04 Temperature 98.3 F 98.7 F 98.1 F Temperature Source Temporal Temporal Temporal Pulse Rate 83 97 89 Respiratory Rate 16 16 16 Respiratory Effort Normal Normal Respiratory Depth Normal Normal Respiratory Pattern Normal Normal Blood Pressure 152/88 H 132/73 H 96/54 L Blood Pressure Mean 109 92 68 BP Systolic BP Diastolic Blood Pressure Source Monitor Monitor Monitor Blood Pressure Position Semi-Fowlers Semi-Fowlers Right Lateral Blood Pressure Location Left Arm Right Arm Right Arm Pulse Ox 100 100 100 Oxygen Delivery Method Room Air Room Air Room Air Weight Weight: 286 lb 6 oz Body Mass Index (BMI) 46.2 Labs Labs Labs: Blood Type A POSITIVE Antibody Screen NEGATIVE Hct 32.6 % (37-47) L Hgb 10.6 g/dL (12.0-15.0) L Pap Smear Positive A Obstetrics US Syphilis Total Ab Non-reactive Rubella IgG Antibody Reactive (Nonreactive) Hep Bs Antigen Non-Reactive (Nonreactive) Chlamydia DNA ([place]HA[place]) Negative (Negative) Neisseria gonorrhoeae DNA ([place]) Negative (Negative) HIV 1&2 Antibody Non-Reactive (Nonreactive) Glucose 1 Hr 50 gm 188 mg/dL (70-140) H Miscellaneous Test
[2022-07-09] MEDS: Lactated Ringers 1,000 ML 200 ML IV (01:04)
[2022-07-09] MEDS: fentaNYL-bupivacaine (epidural) 100 ML BAG EPIDURAL ×2 (01:53→06:31)
--- NOTE | 2022-07-09 02:22 | PCM.PN.BLA ---
Progress Note bps nl to mildly elevated, napping on and off current tracing: FHT: 150 Moderate variability reactive no decelerations category I tracing [place]: q 2-4 Contractions reviewed tracing abnormalities since last note: no signficiant A/P: arom clear fluid, very tight and narrow pelvic floor noted despite epidural relaxation. 4-5/60/-2 from ischial spines but feels higher due to pelvic floor tightness/dysfunction. continue pit per protocol, discussed criteria for csection if inadequate cervical change now water is ruptured and IUPC placed
[2022-07-09] MEDS: Acetaminophen 500 MG Tablet PO (03:14)
[2022-07-09] MEDS: 0.9% Saline Lock 10 ML Syringe IV ×3 (03:47→22:29)
[2022-07-09] MEDS: Magnesium Sulfate 4gm/100mL 4 GM/100 ML IV.SOLN. IV (03:47)
[2022-07-09] MEDS: Labetalol 100 MG Tablet PO ×3 (03:55→22:29)
[2022-07-09] MEDS: Ondansetron 4 MG/2 ML Vial IV ×2 (04:07→16:40)
[2022-07-09] MEDS: Magnesium Sulfate 20 GM/500 ML BAG IV ×3 (04:08→23:23)
[2022-07-09 04:56] LABS: Bedside Glucose 100 mg/dL (74-106)
[2022-07-09] MEDS: Acetaminophen 500 MG Tablet 1000 MG PO ×3 (08:31→18:03)
[2022-07-09 08:46] LABS: Bedside Glucose 108 mg/dL (74-106)
[2022-07-09] MEDS: Sodium Citrate/Citric Acid 30 ML UDC PO (08:51)
--- NOTE | 2022-07-09 09:00 | PLAC_PTH ---
PATIENT: KATARINA BAKER LOC: [facility] U#:[id number] AGE/SX: 31/F ROOM: WP004 RE07/08/[address]: Dr. Lanette Romano DO : 1990 BED: 1 DIS: 07/11/2022 SPEC #: [id number] RECD: 07/09/22 11:34 STATUS: CHANTELL OFELIA #: [id number] ABBIE: 07/09/22 09:[address]: Lanette Romano DEPT: SURGICAL PATHOLOGY RECD BY: Alexia Diggs ENTERED: 07/09/22 13:16 SP TYPE: PLACENTA OTHR DR: No Primary Care Phys Tissues: Placenta, NOS Procedures: Surgery Specimen Level V HEADER OPERATION: Primary section PRE-OP DIAGNOSIS: Retained placenta TISSUE SUBMITTED: Placenta MICROSCOPIC DIAGNOSIS Moss placenta (614 gm): Umbilical cord ? trivascular with no evidence of inflammation. Placental membranes - No pathologic change. Placental disc ? organizing intraparenchymal hemorrhage and focal changes of organizing infarct, Pavel-Elie change and mildly increased intraparenchymal microcalcifications. AM:danny 07/11/2022 MICROSCOPIC DESCRIPTION Slides are reviewed. GROSS DESCRIPTION SPECIMEN: PLACENTA / CLINICAL INFORMATION: A. Weight: 3.695 kg B. Gestational Age: 37 weeks C. Sex: Male PLACENTAL WEIGHT (POST FIXATION): 614 gm PLACENTAL DIMENSIONS: 16 x 16 x 4 cm PLACENTAL SHAPE: Usual ovoid PLACENTAL WEIGHT FOR GESTATIONAL AGE: Over 99th percentile MEMBRANES ? Present. The membranes are received in multiple pieces. A. Insertion: Marginal B. Site of rupture from edge: The membranes are completely detached from placenta and distance of rupture cannot be assessed. C. Color of membrane: Mcclellan-mejia D. Abnormalities: None UMBILICAL CORD - Present A. Color: Mcclellan-mejia B. Insertion: Central C. Length: 50 cm D. Diameter: 1.2 cm E. Number of vessels: Three F. Abnormalities: None PLACENTAL DISC - Present A. Color of surface: Mcclellan-mejia B. surface abnormalities: Multiple blood clots are noted at the placental surface weighing 33 gm and measuring 8 x 6 x 3 cm. C. Maternal cotyledons: Intact with minimal tears D. Attached retro placental clot: No clot E. Cut surface: Dark red and spongy F. Lesions: Sections reveal two mcclellan, indurated lesions, each measuring 0.7 cm in greatest dimension. G. Separate clot: Multiple blood clots are noted weighing 36 gm and measuring in aggregate 8 x 6 x 3 cm. SECTIONS SUBMITTED: 1. Membrane roll 2. Cord, maternal end 3. Cord, end, lesion 4. Placental disc, and maternal surfaces, lesion 5. Placental disc, and maternal surfaces 6. Placental disc, and maternal surfaces SJ:danny 07/10/2022 TC:5 CPT: 38974
--- NOTE | 2022-07-09 09:06 | PCM.PN.BLA ---
Progress Note pitocin now at 24 mu/min. membranes ruptured x 6 hrs. pt is overall comfortable but is requesting primary section current tracing: FHT: 140's Moderate variability reactive no decelerations category I tracing [place]: q2-5min Contractions cx: 5/80/-2 pelvic arch very low. there is dense bony structures from 9:00 to 3:00 position and station is at least 3 cm above this. has made minimal cervical change but no descent. suspect android type pelvic shape. A/P: pre-e on magnesium made slight cervical change with some bloody show now. suspect entering active labor now, however patient has requested a primary section, stating that she has gone through extensive pelvic floor rehab just to have intercourse with her . She is worried pushing and tearing will be more painful than a section;. I suspect an android type pelvis and agree that she will likely tear as the anterior space is much smaller than the posterior space. risks vs benefits discussed. consent signed to proceed with section
[2022-07-09] MEDS: Clindamycin 900 MG/50 ML BAG 75 MG IV (09:12)
--- NOTE | 2022-07-09 10:04 | EX.PCM.OBRPT ---
Assessment & Plan (1) Preeclampsia, severe: COMMENT: magnesium sulfate started IV labetalol (2) Cephalopelvic disproportion: (3) : QUALIFIERS: Weeks of gestation: 32 weeks Qualified Code(s): Z3A.32 - 32 weeks gestation of COMMENT: GBS Negative, anatomy nl addtnl views in 2 wks nl, Carrier testing, NIPT low risk. afp negative (4) Obesity affecting : COMMENT: 1 TM GCT ordered, healthy weight gain encouraged (5) Gestational diabetes: COMMENT: HgA1c, glucometer readings fasting and 2 hrs pp, s/p referral to Endocrinolgist & [facility] datastage consultant, louie NST @ 32 wks growth q4 wks. On insulin. (6) Hypertension affecting : COMMENT: questionable- elevated at 2 visits. monitor bps and determine treatment needed, baseline labs ordered. EKG. repeats WNL and no meds. Elevated 05/07 and to [facility] (7) UTI in : COMMENT: once treated with keflex. Macrobid 05/07/22:culture was negative (8) Intends to breastfeed: COMMENT: plan for third trimester consult (9) Pregestational diabetes mellitus, modified White class B: COMMENT: HgA1c, glucometer readings fasting and 2 hrs pp, s/p referral to Endocrinolgist & [facility] datastage consultant, louie NST @ 34 wks growth q4 wks (10) Chronic hypertension with superimposed preeclampsia: COMMENT: plan 37 week delivery, recommend off work now until delivery Maternal Data Information ELVIS Calculator Estimated Delivery Date Method Current WG Current Estimate 07/27/22 LMP (Certain) 37w 3d Final ELVIS: 07/27/22 Final ELVIS Source: LMP Gestational age: 37 weeks 3 days [place] Doctor Who Attended Delivery: -Attn: YELENA Clarke Lab Details Operative Information Date of Procedure: 07/09/22 Pre-Operative Diagnosis: 37 weeks 3 days , chronic hypertension with superimposed pre-e, pre-existing diabetes, cephalopelvic disproportion Post-Operative Diagnosis: 37 weeks 3 days , chronic hypertension with superimposed pre-e, pre-existing diabetes, cephalopelvic disproportion, retained placenta Classification: HEMA Procedure Type: 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 Her was also complicated by pre-existing diabetes and she was treated with insulin. Her labor was initiated with cytotec and she was also started on magnesium and given procardia and labetalol for her high blood pressures. She progressed to 4 cm and stalled for 12 hours. pitocin was increased to 24 mu/min and cervix changed to 5.5 cm but patient requested a primary section due to exhaustion and also pelvic floor dysfunction. Her pelvic outlet was noted to be extremely narrow. Risks, benefits, and alternatives were discussed and consent was signed. She was brought to the OR where epidural anesthesia was found to be adequate after dosing with Duramorf. Pinzon catheter was already in place and a vaginal prep was performed. . The patient was placed in the dorsal supine position with leftward tilt. Patient was prepped and draped in the normal sterile fashion. Pfannenstiel skin incision was made with the scalpel and carried through to the underlying layer of fascia with the scalpel. Fascia was nicked in the midline and the incision extended laterally. The rectus bellies were dissected off superiorly and inferiorly with out complication both sharply and bluntly. The peritoneum was entered digitally. The incision was stretched and a low transverse uterine incision was made with the scalpel. The 's head was delivered atraumatically followed by the anterior and posterior shoulders without complication the rest of the delivered. The cord was clamped and cut and the infant was handed off to awaiting nurse. The placenta was delivered manually immediately following and was found to be adherent to the anterior abdominal wall and also at the lower uterine segment. A banjo curettage was then performed. TXA and pitocin were given to prevent hemorrhage. There was also noted to be a true knot in the cord and a three-vessels present. The uterus was exteriorized cleared of all clots and debris, and the incision was closed in a double layer closure using #1 Monocryl. The ovaries and fallopian tubes were noted to be within normal limits. The uterus was returned to the maternal abdomen and gutters were cleared of all clots and debris. The peritoneum was closed with 3-0 Monocryl in a running fashion. Gloves were changed prior to fascial closure. Fascia was closed with 0 PDS in a running fashion. Subcutaneous tissue was copiously irrigated with irracept solution and the skin was closed with 3-0 Monocryl in a subcuticular fashion. Mepilex dressing was applied without complication. Patient was taken to recovery in stable condition. It was discussed with the patient that based on the clinical information obtained during this encounter, combined with her history, at this time I would recommend repeat section for future deliveries if further pregnancies are desired. Presentation: Positive for Vertex Amniotic Membrane Rupture Type: Artificial Time of Membrane Ruptured: 3:00 am 07/09/22 Amniotic Fluid Description: Clear Placental Delivery Description: Manual Removal, Retained and Curettage Placenta Disposition: Routine to Lab Cord Vessel Description: 3 Vessels Cord Entanglement: True Knot(s) (1 true knot) Infant A Gender: Male (1 minute): 8 (5 minute): 10 Delayed Cord Clamping: Yes Complications Risks of Surgery Discussed w/Patient: Bleeding, Anesthesia Risks, Infection, Need for Future C-Sections and Injury to surrounding structure(s) including bowel and bladder Multi Select Codes Urinary/Genital Urinary/Genital CPT Codes: 53899 Curettage, and 57019 Delivery [facility]
[2022-07-09] MEDS: Oxytocin 15 Units/NS 250ml 15 UNITS/250 ML IV.SOLN 83 UNITS IV (10:15)
[2022-07-09] MEDS: Ketorolac 30 MG/ML Syringe IV ×4 (11:00→22:29)
[2022-07-09] MEDS: Prenatal Vits Tablet 1 TABLET PO (12:27)
[2022-07-09 12:30] LABS: Bedside Glucose 118 mg/dL (74-106)
[2022-07-09 12:30] LABS: Bedside Glucose 122 mg/dL (74-106)
[2022-07-09] MEDS: Lactated Ringers 1,000 ML 100 ML IV (13:44)
[2022-07-09 17:15] LABS: Bedside Glucose 109 mg/dL (74-106)
[2022-07-09] MEDS: Heparin Injection (Vial) 5,000 UNIT/ML VIAL 5000 UNIT SC (22:27)
[2022-07-09 23:10] LABS: Bedside Glucose 107 mg/dL (74-106)
[2022-07-09] MEDS: Insulin Lispro 100 UNIT/ML INSULN.PEN SC (23:17)
[2022-07-10] VITALS (17 sets, daily range): BP systolic 88–158; BP diastolic 37–80; PULSE 82–104; RESP 14–18; TEMP 36.1–36.9; O2SAT 96–100
[2022-07-10] MEDS: Acetaminophen 500 MG Tablet 1000 MG PO ×4 (03:14→21:51)
[2022-07-10] MEDS: Ketorolac 30 MG/ML Syringe IV (04:14)
[2022-07-10] MEDS: 0.9% Saline Lock 10 ML Syringe IV ×2 (04:15→08:56)
[2022-07-10 04:36] LABS: Hematocrit 25.6 % (37-47); Hemoglobin 8.4 g/dL (12.0-15.0); Mean Corp Hgb Conc 32.8 g/dL (32-36); Mean Corpuscular Hgb 26.8 pg (27.0-32.0); Mean Corpuscular Volume 81.8 fL (81-99); Mean Platelet Vol. 10.4 fl (6.2-12.0); Platelet Count 262 K/mm3 (150-450); RBC Distribution Width CV 14.8 % (11.6-14.6); RBC Distribution Width SD 43.3 fl (35.1-43.9); Red Blood Count 3.13 M/mm3 (4.2-5.4); White Blood Count 15.8 K/mm3 (4.4-11.0)
[2022-07-10] MEDS: Labetalol 100 MG Tablet PO ×3 (05:58→21:57)
--- NOTE | 2022-07-10 08:00 | PCM.PN.OB ---
Subjective Subjective Patient is laying in bed comfortably without complaints. She states that she slept on an off during the night. Lochia is mild and pain is minimal. Objective Data Objective Data Vital Signs: Vital Signs Temp Pulse Resp BP Pulse Ox O2 Del Method 97.6 F L 90 18 122/72 H 98 Room Air 07/10/22 07:03 07/10/22 07:03 07/10/22 07:03 07/10/22 07:03 07/10/22 07:03 07/10/22 07:03 Oxygen Delivery Method Room Air Weight: 286 lb 6 oz Body Mass Index (BMI) 46.2 Intake & Output: Intake and Output for Last 24 Hours 07/08/22 07/09/22 07/10/22 23:59 23:59 23:59 Intake Total 2633.38 / 2633.38 5196.60 / 5196.60 280 / 280 Output Total 3000 / 3000 4650 / 4650 700 / 700 Balance -366.62 / -366.62 546.60 / 546.60 -420 / -420 Lab / Micro Data Result Diagrams: 07/10/22 04:28 07/08/22 08:45 Labs: Laboratory Results - last 24 hr 07/09/22 08:04: POC Glucose 108 H 07/09/22 10:28: POC Glucose 118 H 07/09/22 11:59: POC Glucose 122 H 07/09/22 16:48: POC Glucose 109 H 07/09/22 22:38: POC Glucose 107 H 07/10/22 04:28: WBC 15.8 H, RBC 3.13 L, Hgb 8.4 L, Hct 25.6 L, MCV 81.8, MCH 26.8 L, MCHC 32.8, RDW Std Deviation 43.3, RDW Coeff of Lino 14.8 H, Plt Count 262, MPV 10.4 ROS Constitutional Constitutional: Reports systems reviewed and no addt'l complaints, except as documented Cardiovascular Cardiovascular: Denies chest pain, dizziness, dyspnea or irregular heart rhythm Respiratory/Chest Respiratory/Chest: Denies cough, pain on inspiration or shortness of breath at rest Gastrointestinal Gastrointestinal: Denies abdominal pain, nausea or vomiting Genitourinary Genitourinary: Denies burning urination Musculoskeletal Musculoskeletal: Denies muscle cramps, muscle spasms or muscle weakness Neurologic Neurologic: Denies confusion, dizziness, headache(s) or lack of coordination Psychiatric Psychiatric: Denies anxiety, behavioral changes or depression Physical Exam HEENT normocephalic Resp normal respiratory effort and normal air movement GI soft to palpation, non-tender and non-distended Rectal Exam: other Other Details: Incision is clean, dry, and intact no CVA tenderness Extremity normal to inspection General Extremity: edema bilateral (trace ) Assessment & Plan (1) Status post section: COMMENT: cpd del 07/09/22 JV- leon jaramillo (2) Cephalopelvic disproportion: (3) Preeclampsia, severe: COMMENT: magnesium sulfate started IV labetalol PLAN: Plan s/p LTCS PPD # 1 1. routine post care 2. pre-e on mag- stop mag at 9 today and dc teran 3. breast feeding- support given 4. rh positive 5. rubella immune 6. dc planning - plan for dc tomorrow if bp stable
[2022-07-10 08:51] LABS: Bedside Glucose 110 mg/dL (74-106)
[2022-07-10] MEDS: Heparin Injection (Vial) 5,000 UNIT/ML VIAL 5000 UNIT SC ×2 (10:06→21:53)
[2022-07-10] MEDS: Senna/Docusate Sodium 1 Tablet PO (10:06)
[2022-07-10] MEDS: Naproxen 500 MG Tablet PO ×2 (10:06→18:04)
--- NOTE | 2022-07-10 13:25 | NURSING ---
Report given to Dustin Hancock RN, who will assume care of this patient at this time.
[2022-07-10 14:46] LABS: Bedside Glucose 102 mg/dL (74-106)
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
[2022-07-10 18:31] LABS: Bedside Glucose 98 mg/dL (74-106)
[2022-07-10] MEDS: Insulin Lispro 100 UNIT/ML INSULN.PEN SC (22:10)
[2022-07-10 23:36] LABS: Bedside Glucose 100 mg/dL (74-106)
[2022-07-11] MEDS: Naproxen 500 MG Tablet PO ×2 (02:45→09:34)
[2022-07-11] MEDS: 0.9% Saline Lock 10 ML Syringe IV (02:47)
[2022-07-11 02:51] VITALS: BP 153/91; PULSE 92; RESP 16; TEMP 36.5; O2SAT 98
[2022-07-11] MEDS: Acetaminophen 500 MG Tablet 1000 MG PO ×2 (03:25→09:34)
[2022-07-11] MEDS: Labetalol 100 MG Tablet PO (06:13)
--- NOTE | 2022-07-11 07:48 | PCM.PN.OB ---
Subjective Subjective Patient doing well without complaints. Tolerating PO. Ambulating and voiding without difficulty. Feeding well. Denies chest pain, shortness of breath, calf pain/swelling, fevers, chills, lightheadedness. She is no longer having headaches. Objective Data Objective Data Vital Signs: Vital Signs Temp Pulse Resp BP Pulse Ox O2 Del Method 97.7 F L 92 16 153/91 H 98 Room Air 07/11/22 02:51 07/11/22 02:51 07/11/22 02:51 07/11/22 02:51 07/11/22 02:51 07/11/22 02:51 Oxygen Delivery Method Room Air Weight: 286 lb 6 oz Body Mass Index (BMI) 46.2 Intake & Output: Intake and Output for Last 24 Hours 07/09/22 07/10/22 07/11/22 23:59 23:59 23:59 Intake Total 5196.60 / 5196.60 529.17 / 529.17 Output Total 4650 / 4650 1100 / 1100 Balance 546.60 / 546.60 -570.83 / -570.83 Lab / Micro Data Result Diagrams: 07/10/22 04:28 07/08/22 08:45 Labs: Laboratory Results - last 24 hr 07/10/22 08:20: POC Glucose 110 H 07/10/22 14:09: POC Glucose 102 07/10/22 18:06: POC Glucose 98 07/10/22 22:07: POC Glucose 100 Physical Exam Const alert and oriented x3 HEENT normocephalic Eyes PERRL Neck full ROM Resp normal respiratory effort GI soft to palpation GI Narrative: FF below U. Dressing dry and intact Palpation: tender other (appropriately) Assessment & Plan (1) S/P primary low transverse : COMMENT: 07/09/22 CPD Aguila GARDNER (2) Chronic hypertension with superimposed preeclampsia: COMMENT: plan 37 week delivery, recommend off work now until delivery (3) Anxiety: PLAN: Plan s/p LTCS PPD # 2 1. routine post care 2. breast feeding- support given 3. rh positive 4. rubella immune 5. plans dc home today if bp stable.
[2022-07-11 08:25] VITALS: BP 146/79; PULSE 103; RESP 16; TEMP 36.4; O2SAT 97
--- NOTE | 2022-07-11 08:53 | NURSING ---
0720 christy alba notified of pts BP's during the night
[2022-07-11 09:16] LABS: Bedside Glucose 103 mg/dL (74-106)
[2022-07-11 10:15] VITALS: BP 144/78
--- NOTE | 2022-07-11 10:17 | DCINST_ITS ---
Discharge Instructions Diet Discharge Diet: No restrictions Activity Discharge Activity: May Not Drive (for 2 weeks or while taking narcotic pain medications.), May Shower and May Take a Tub Bath (in 7 days.) May resume sexual activity in: 4-6 weeks Weight Bearing Status: Full weight bearing Lifting Restrictions: 20 pounds Dressing / Incision Call your doctor if your incision/area has: Continuous Slow Oozing, Sudden Increased Bleeding, Increased Pain/ Swelling, Increased Redness and Foul Smelling Discharge Call your doctor if you observe: Fever of 101 or Higher and Using more than 1 pad per hour Suture Line Care: Avoid Pulling/Pushing and Avoid Pinching/Bending Cleanse incision/area with: Soap & Water and Keep Dressing Clean & Dry Follow Up Care Please Follow Up With: Lanette Romano DO When: Call [phone] to make an appointment for an incision check in 1-2 weeks. Test Results: Test results from this visit will be discussed in further detail at your follow- up appointment, if applicable. Discharge Plan Admission Admit Date/Time: 07/08/22 06:58 Attending Provider: Lanette Romano Primary Care Provider: Care PhysicianLisa Primary Discharge Orders/Prescriptions Prescriptions: New oxycodone-acetaminophen [Percocet] 5-325 mg tablet 1 tab PO Q4H PRN (Reason: pain) 7 Days Qty: 30 0RF Rx Instructions: 1-2 tabs q 4 hrs as needed for pain naproxen 500 mg tablet 500 mg PO BID PRN (Reason: pain) Qty: 30 0RF labetalol 100 mg tablet 100 mg PO TID Qty: 90 3RF Continued DHA 200 mg capsule 1 mg PO DAILY metoclopramide HCl [Reglan] 10 mg tablet 10 mg PO Q6H PRN (Reason: nausea and vomiting) Qty: 60 2RF hydroxyzine pamoate [Vistaril] 25 mg capsule 25 mg PO BID PRN (Reason: anxiety) Qty: 30 0RF Discontinued Flintstones Multi-Vit Gummies 100 mcg tablet,chewable 1 tab PO DAILY cephalexin 500 mg capsule 500 mg PO BID Rx Instructions: after initial 4x x 10 days take twice daily for remainder of insulin lispro [Humalog KwikPen Insulin] 100 unit/mL insulin pen 5 unit subcut .before supper No Action (DME) Blood Pressure Cuff Misc See Rx Instructions .ROUTE Rx Instructions: As directed (DME) BD AutoShield Duo Pen Needle 30 gauge x 3/16 needle See Rx Instructions .ROUTE Rx Instructions: daily Referrals / Follow Up: Care Physician,No Primary [Primary Care Provider] - Disposition Disposition (needs filled in before D/C Order can be placed): Home, Self Care
[2022-07-11 13:37] LABS: Pathology Specimen OB SEE PATHOLOGY REPORT
--- NOTE | 2022-07-11 16:10 | NURSING ---
1155 reviewed with pt signs and symptoms of Pre E and what to report to the doctor; pt states that she can check her BP
--- NOTE | 2022-07-11 16:12 | NURSING ---
1020 called the office and spoke with dr linares made aware of pts last 2 BP's 146/79 and 144/78. Pt does not have any home meds or prescriptions for trandate at home. 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
--- NOTE | 2022-07-14 15:06 | PCM.DC.SUM ---
Providers Date of Admission: 07/08/22 Primary Care Physician: No Primary Care Phys Reason For Visit: INDUCTION/PRIMARY C SECTION DELIVERY Diagnosis Discharge Diagnosis (1) S/P primary low transverse : Status: Acute Code(s): Z98.891 - History of uterine scar from previous surgery (2) Chronic hypertension with superimposed preeclampsia: Status: Acute Code(s): O11.9 - Pre-existing hypertension with pre-eclampsia, unspecified trimester (3) Anxiety: Status: Acute Code(s): F41.9 - Anxiety disorder, unspecified Plan s/p LTCS PPD # 2 1. routine post care 2. breast feeding- support given 3. rh positive 4. rubella immune 5. plans dc home today if bp stable. Medications at Discharge Home Medications docosahexaenoic acid 200 mg capsule ( DHA) 1 mg PO DAILY Check with primary doctor 07/31/21 metoclopramide HCl 10 mg tablet (Reglan) 10 mg PO Q6H PRN nausea and vomiting #60 tabs 06/13/22 hydroxyzine pamoate 25 mg capsule (Vistaril) 25 mg PO BID PRN anxiety #30 caps 07/03/22 miscellaneous medical supply (Blood Pressure Cuff) 07/08/22 pen needle,diabetic dual safty 30 gauge x 3/16 (BD AutoShield Duo Pen Needle) 07/08/22 labetalol 100 mg tablet 100 mg PO TID #90 tabs 07/11/22 naproxen 500 mg tablet 500 mg PO BID PRN pain #30 tabs 07/11/22 oxycodone-acetaminophen 5 mg-325 mg tablet (Percocet) 1 tab PO Q4H PRN pain 7 days #30 tabs 07/11/22 Hospital Course Operations section Summary of Care Provided Hospital Course: Patient underwent section with routine recovery, return of normal bowel and bladder function. Ambulating, voiding and tolerating PO. Stable for discharge home POD #3. Weight / BMI Weight Weight: 286 lb 6 oz Body Mass Index (BMI) 46.2 ABG / Lab / Microbiology Data Result Diagrams: 07/10/22 04:28 07/08/22 08:45 D/C Instructions Discharge Diet: No restrictions May resume sexual activity in: 4-6 weeks Weight Bearing Status: Full weight bearing Call your doctor if your incision/area has: Continuous Slow Oozing, Sudden Increased Bleeding, Increased Pain/ Swelling, Increased Redness and Foul Smelling Discharge Call your doctor if you observe: Fever of 101 or Higher and Using more than 1 pad per hour Suture Line Care: Avoid Pulling/Pushing and Avoid Pinching/Bending Cleanse incision/area with: Soap & Water and Keep Dressing Clean & Dry Please Follow Up With: Lanette Romano DO When: Call [phone] to make an appointment for an incision check in 1-2 weeks. Meaningful Use Info Meaningful Use Diagnoses (Choose all that apply): None applicable Discharge Plan Admission Admit Date/Time: 07/08/22 06:58 Attending Provider: Lanette Romano Primary Care Provider: Lisa Sandoval Primary Discharge Orders/Prescriptions Prescriptions: New oxycodone-acetaminophen [Percocet] 5-325 mg tablet 1 tab PO Q4H PRN (Reason: pain) 7 Days Qty: 30 0RF Rx Instructions: 1-2 tabs q 4 hrs as needed for pain naproxen 500 mg tablet 500 mg PO BID PRN (Reason: pain) Qty: 30 0RF labetalol 100 mg tablet 100 mg PO TID Qty: 90 3RF Continued DHA 200 mg capsule 1 mg PO DAILY metoclopramide HCl [Reglan] 10 mg tablet 10 mg PO Q6H PRN (Reason: nausea and vomiting) Qty: 60 2RF hydroxyzine pamoate [Vistaril] 25 mg capsule 25 mg PO BID PRN (Reason: anxiety) Qty: 30 0RF Discontinued Flintstones Multi-Vit Gummies 100 mcg tablet,chewable 1 tab PO DAILY cephalexin 500 mg capsule 500 mg PO BID Rx Instructions: after initial 4x x 10 days take twice daily for remainder of insulin lispro [Humalog KwikPen Insulin] 100 unit/mL insulin pen 5 unit subcut .before supper No Action (DME) Blood Pressure Cuff Misc See Rx Instructions .ROUTE Rx Instructions: As directed (DME) BD AutoShield Duo Pen Needle 30 gauge x 3/16 needle See Rx Instructions .ROUTE Rx Instructions: daily Referrals / Follow Up: Care Physician,No Primary [Primary Care Provider] - Disposition Disposition (needs filled in before D/C Order can be placed): Home, Self Care
== END 2022-07-11 12:00 | disposition home or self-care (01) | DRG 788 ==
PROVIDERS: Registered Nurse; Admitting Provider Obstetrics & Gynecology; Referring Provider Obstetrics & Gynecology; Visit Provider Obstetrics & Gynecology
DX: O11.4 Pre-existing hypertension with pre-eclampsia, complicating childbirth (principal); E66.9 Obesity, unspecified; F41.9 Anxiety disorder, unspecified; O24.424 Gestational diabetes mellitus in childbirth, insulin controlled; O99.344 Other mental disorders complicating childbirth; Z37.0 Single live birth; Z3A.37 37 weeks gestation of pregnancy; O65.4 Obstructed labor due to fetopelvic disproportion, unspecified; O10.92 Unspecified pre-existing hypertension complicating childbirth; O75.81 Maternal exhaustion complicating labor and delivery; O73.1 Retained portions of placenta and membranes, without hemorrhage; O69.2XX0 Labor and delivery complicated by other cord entanglement, with compression, not applicable or unspecified
CPT/HCPCS: 59025; 59050; 82565; 82570; 82962; 84156; 84450; 84460; 84550; 85025; 85027; 86850; 86900; 86901; 88307; 99221; J7120; A4216; G0378; J2405

== ENCOUNTER → 2024-05-24 | Outpatient (CLI) | payer OTHER, SELFPAY ==
[2024-05-31 09:23] LABS: HPV APTIMA, High Risk Negative (Negative)
== END | disposition home or self-care (01) ==
PROVIDERS: Referring Provider Obstetrics & Gynecology; Visit Provider Obstetrics & Gynecology
DX: Z12.4 Encounter for screening for malignant neoplasm of cervix (principal)
CPT/HCPCS: 87624; 88175; G0145

== ENCOUNTER → 2024-12-20 | Outpatient (CLI) | payer BC, SELFPAY | END | disposition home or self-care (01) | PROVIDERS: PCP Internal Medicine; Referring Provider Obstetrics & Gynecology; Visit Provider Obstetrics & Gynecology | DX: N97.9 Female infertility, unspecified (principal) | CPT/HCPCS: 58340; 74740; Q9967 ==